=== PATIENT | male | born 1960 | race Caucasian/White ===

== ENCOUNTER 2016-12-16 12:17 | Emergency (ER) | payer OTHER, MEDICAID ==
[2016-12-16 14:06] LABS: % IMMATURE GRANULYOCYTES 0.5 % (0.0-1.1); ABSOLUTE IMMATURE GRANULOCYTES 0.04 10^3/uL (0.00-0.10); ADD DIFF? NO; ADD MORPH? NO; ADD SCAN? NO; ATYPICAL LYMPHOCYTE FLAG 20 (0-99); FRAGMENT RBC FLAG 0 (0-99); HEMATOCRIT 45.9 % (40.0-51.0); HEMOGLOBIN 15.3 g/dL (13.7-17.5); LEFT SHIFT FLG 0 (0-99); LIPEMIA HEMOLYSIS FLAG 80 (0-99); MEAN CELL HEMOGLOBIN 30.5 pg (27.9-34.1); MEAN CELL HEMOGLOBIN CONCENTR. 33.3 g/dL (32.4-36.7); MEAN CELL VOLUME 91.4 fL (81.5-99.8); MEAN PLATELET VOLUME 10.1 fL (8.7-11.7); PLATELET CLUMPS FLAG 0 (0-99); PLATELET COUNT 266 10^3/uL (150-400); RED BLOOD CELL COUNT 5.02 10^6/uL (4.40-6.38); RED CELL DISTRIBUTION WIDTH 13.6 % (11.5-15.2)
--- NOTE | 2016-12-16 14:08 | EDPHY ---
H & P Time Seen by Provider: 12/16/16 14:07 HPI/ROS: Chief complaint. Vomiting, diarrhea HPI. 56-year-old male vomiting and diarrhea which began today. No abdominal pain. Apparent recurrent vomiting and diarrhea this morning. No treatment so far. No abdominal pain or fever. He does have cough and tells me he is on his 3rd round of antibiotics for cough. No headache or chest discomfort or shortness of breath. Denies bad food, travel or known exposure to Infectious Disease. No blood in the diarrhea ROS Constitutional. no fever/chills, no weakness Eyes. no problems with vision ENT. no sore throat, no nasal drainage Cardiovascular. no chest pain Respiratory. no shortness of breath, no cough Abdominal. No abdominal pain but vomiting and diarrhea . no problems urinating MS. no calf pain/swelling, no neck/back pain, no joint pain Skin. no rash Lymph. no swollen glands Neuro. no headache, no dizziness, chronic difficulty walking; no problem with speech Past Medical/Surgical History: Past medical history dyslipidemia, constipation, muscle spasms, edema, hypertension, GERD Social History: Single, nonsmoker, no alcohol Smoking Status: Never smoked Physical Exam: General Appearance: Alert well-developed male mild distress. Eyes: Pupils equal and round no pallor or injection. ENT, Mouth: Mucous membranes are moist. Respiratory: There are no retractions, lungs are clear to auscultation. Cardiovascular: Regular rate and rhythm. Gastrointestinal: Abdomen is large and distended but nontender. No masses. Normal bowel sounds. Neurological: Awake and alert, sensory and motor exams grossly normal. Skin: Warm and dry, no rashes. Musculoskeletal: Neck is supple nontender. Extremities symmetrical, full range of motion. Psychiatric: Patient is oriented X 3, there is no agitation. Constitutional: Initial Vital Signs Temperature (C) 37.1 C 12/16/16 12:29 Heart Rate 88 12/16/16 12:29 Respiratory Rate 18 12/16/16 12:29 Blood Pressure 128/83 H 12/16/16 12:29 O2 Sat (%) 86 L 12/16/16 12:29 O2 Delivery Mode Nasal Cannula O2 (L/minute) 3 Allergies/Adverse Reactions: No Allergies [NKDA] Allergy (Verified 04/13/16 11:38) Home Medications: Medication Instructions Recorded Baclofen [Baclofen 20 mg (*)] 20 mg PO BID 11/16/12 Cholecalciferol Vit D3 [Vitamin D3 1,000 units PO HS 03/24/12 (*)] Gabapentin [Neurontin 300 MG (*)] 300 mg PO BID 03/24/12 Magnesium Hydroxide [Milk of 30 ml PO DAILY PRN 03/24/12 Magnesia (*)] Metoclopramide [Reglan 5 mg (*)] 5 mg PO TID 03/24/12 Oxybutynin Chloride Xl [Ditropan 5 mg PO DAILY06 03/24/12 Xl 5mg (*)] Polyethylene Glycol 3350 [Miralax 17 gm PO TID 03/24/12 17 gm (*)] Sennosides/Docusate Sodium [Senna 1 each PO BID 03/24/12 Plus Tablet] acetaZOLAMIDE [Diamox] 250 mg PO DAILY 03/24/12 guaiFENesin [Mucinex 600 MG (*)] 600 mg PO BID PRN 03/24/12 Hydrocodone/APAP 5/325 [[place] 1 - 2 tab PO Q4 PRN #90 tab 04/01/12 5/325 (*)] Atorvastatin Calcium 01/22/16 Diamox Sequel 500mg DAILY AT 6PM 01/22/16 [place] 3 1,000 mg Softgel 01/22/16 Ondansetron Odt [Zofran Odt] 4 mg PO Q4PRN PRN #4 tab 12/16/16 Medical Decision Making - Diagnostics Imaging Results: Imaging Impressions Abdomen X-Ray 12/16/16 14:18 Impression: Dilated gas-filled cecum. No small bowel obstruction. If there is concern for cecal volvulus, then consider CT of the abdomen and pelvis with IV contrast. Results discussed with Dr. Darwin Enciso at 15:36. Chest X-Ray 12/16/16 14:19 Impression: Nothing acute identified. Abdomen CT 12/16/16 15:46 Impression: 1. No evidence of cecal volvulus. Moderate air-filled distention of the sigmoid colon. 2. Small bilateral nonobstructing renal calculi. 3. Atelectasis within the lung bases bilaterally. 4. Mild diffuse fatty hepatic replacement. Results called to Dr. Darwin Enciso at 5:20 p.m. One-view chest x-ray interpreted by me is normal Abdominal x-ray concerning for cecal volvulus. Abdominal and pelvis CT shows no evidence of cecal volvulus. No acute findings Procedures: IV normal saline. Zofran for nausea ED Course/Re-evaluation: Re-evaluation 6:00 p.m.--patient is stable. No further nausea or vomiting. No diarrhea in the emergency department. Patient and I discussed imaging lab results. We discussed treatment plan including criteria for return importance of follow-up further evaluation. He expresses understanding and agreement. Differential Diagnosis: I considered Clostridium difficile however the patient has not been able to give us a stool sample. This could represent a vomiting diarrhea viral type illness. We were concerned for bowel obstruction and cecal volvulus however this appears to be not the case. I considered electrolyte abnormalities and dehydration as well - Data Points Laboratory Results: Laboratory Results 12/16/16 13:00 12/16/16 13:00 12/16/16 12/16/16 13:00 13:00 WBC 8.31 10^3/uL 10^3/uL (3.80-9.50) RBC 5.02 10^6/uL 10^6/uL (4.40-6.38) Hgb 15.3 g/dL g/dL (13.7-17.5) Hct 45.9 % % (40.0-51.0) MCV 91.4 fL fL (81.5-99.8) MCH 30.5 pg pg (27.9-34.1) MCHC 33.3 g/dL g/dL (32.4-36.7) RDW 13.6 % % (11.5-15.2) Plt Count 266 10^3/uL 10^3/uL (150-400) MPV 10.1 fL fL (8.7-11.7) Neut % (Auto) 67.6 % % (39.3-74.2) Lymph % (Auto) 18.4 % % (15.0-45.0) [place] % (Auto) 10.2 % % (4.5-13.0) Eos % (Auto) 2.6 % % (0.6-7.6) Baso % (Auto) 0.7 % % (0.3-1.7) Nucleat RBC Rel Count 0.0 % % (0.0-0.2) Absolute Neuts (auto) 5.61 10^3/uL 10^3/uL (1.70-6.50) Absolute Lymphs (auto) 1.53 10^3/uL 10^3/uL (1.00-3.00) Absolute Monos (auto) 0.85 10^3/uL H 10^3/uL (0.30-0.80) Absolute Eos (auto) 0.22 10^3/uL 10^3/uL (0.03-0.40) Absolute Basos (auto) 0.06 10^3/uL 10^3/uL (0.02-0.10) Absolute Nucleated RBC 0.00 10^3/uL 10^3/uL (0-0.01) Immature Gran % 0.5 % % (0.0-1.1) Immature Gran # 0.04 10^3/uL 10^3/uL (0.00-0.10) Sodium 141 mEq/L mEq/L (134-144) Potassium 3.9 mEq/L mEq/L (3.5-5.2) Chloride 100 mEq/L mEq/L (97-110) Carbon Dioxide 27 mEq/l mEq/l (22-31) Anion Gap 14 mEq/L mEq/L (8-16) BUN 14 mg/dL mg/dL (7-23) Creatinine 1.1 mg/dL mg/dL (0.7-1.3) Estimated GFR > 60 Glucose 101 mg/dL H mg/dL (70-100) Calcium 10.0 mg/dL mg/dL (8.5-10.4) Medications Given: Discontinued Medications Sodium Chloride (Ns) 1,000 mls @ 0 mls/hr IV EDNOW ONE; Wide Open PRN Reason: Protocol Stop: 12/16/16 14:19 Last Admin: 12/16/16 15:03 Dose: 1,000 mls Ondansetron HCl (Zofran) 4 mg IVP EDNOW ONE Stop: 12/16/16 14:19 Last Admin: 12/16/16 15:03 Dose: 4 mg Departure - Departure Disposition: Home, Routine, Self-Care Clinical Impression: Vomiting Qualifiers: Vomiting type: unspecified Vomiting Intractability: non-intractable Nausea presence: with nausea Qualified Code(s): R11.2 - Nausea with vomiting, unspecified Diarrhea Qualifiers: Diarrhea type: unspecified type Qualified Code(s): R19.7 - Diarrhea, unspecified Condition: Good Instructions: Acute Nausea and Vomiting (ED), Loperamide (By mouth) Additional Instructions: Frequent, small sips fluids well nauseated. Gradual diet advancement. Zofran if needed for nausea and vomiting. For diarrhea you may use Imodium (loperamide) which can by without prescription. Return for worsening symptoms. Recheck in 1-2 days for continuing symptoms Referrals: VÍCTOR,ALEA [Other] - 2-3 days, if not improved Prescriptions: Ondansetron Odt [Zofran Odt] 4 mg PO Q4PRN PRN #4 tab PRN Reason: Nausea/Vomiting, Use 1st
[2016-12-16] MEDS ORDERED: ONDANSETRON 4 MG/2 ML VIAL IVP ONE (14:18)
[2016-12-16] MEDS ORDERED: NS 1,000 ML IV ONE (14:18)
[2016-12-16 14:26] LABS: ANION GAP 14 mEq/L (8-16); CARBON DIOXIDE 27 mEq/l (22-31); CHLORIDE 100 mEq/L (97-110); CREATININE 1.1 mg/dL (0.7-1.3); GLOMERULAR FILTRATION RATE > 60; GLUCOSE 101 mg/dL (70-100); POTASSIUM 3.9 mEq/L (3.5-5.2); SODIUM 141 mEq/L (134-144)
[2016-12-16] MEDS ORDERED: IOPAMIDOL (ISOVUE-300) 100 ML BTL ONE (16:01)
[2016-12-16 17:03] VITALS: BP 111/67
[2016-12-16] MEDS ORDERED: ONDANSETRON 4MG PREPACK#2 BTL TAKEHOME ONE (18:05)
[2016-12-16 19:14] VITALS: PULSE 66; RESP 16; O2SAT 90
[2016-12-16 19:51] VITALS: TEMP 98.2
== END 2016-12-16 19:51 | disposition home or self-care (01) ==
LOC: EDUNIT#
DX: R19.7 Diarrhea, unspecified (principal); R11.2 Nausea with vomiting, unspecified; E86.9 Volume depletion, unspecified; I10 Essential (primary) hypertension
CPT/HCPCS: 71010; 74000; 74177; 96361; 96374; 99285; J2405; Q9967

== ENCOUNTER 2016-12-24 09:49 | Emergency (ER) | payer OTHER, MEDICAID ==
--- NOTE | 2016-12-24 09:54 | EDPHY ---
HPI/HX/ROS/PE/MDM - Data Points Imaging: Discussed imaging studies w/ clothes wringer Radiologist Narrative: CHIEF COMPLAINT: Abdominal pain HPI: This patient is a 56 year old male with history of hydrocephaly complaining of lower right quadrant abdominal pain onset this morning. Over the last three days , his home care staff have noted markedly increased abdominal distention, more than the patient's usual. He is currently being treated for pneumonia, and is on his third course of antibiotics. He is generally on 1L home oxygen at night, but EMS increased this to 3L due to low oxygen saturation. The patient remained around 87-90% O2 saturation. EMS was unable to establish an IV and gave oral Zofran. No other interventions prior to arrival. The patient's vitals were stable in transport. Today, he feels his abdomen is "rock hard" and has associated pain. He denies constipation, dysuria, fever, or other associated symptoms. The patient was seen in the ED approximately one week ago for similar complaints. REVIEW OF SYSTEMS: Aside from elements discussed in the HPI, a comprehensive 10-point review of systems was reviewed and is negative. PMH: hyperlipidemia, neuropathy, hydrocephaly. Takes Lasix. SOCIAL HISTORY: Lives in [place] with home care staff. PHYSICAL EXAM: General:Patient is alert, in no acute distress. ENT:Eyes are normal to inspection. ENT inspection normal. Neck: Normal inspection. Full range of motion. Respiratory: Left-sided rhonchi. Cardiovascular: Regular rate and rhythm. Strong peripheral pulses. Normal cap refill. Abdomen:The abdomen is nontender to palpation. There are no peritoneal signs. There are normal bowel sounds. Back: Normal to inspection. No tenderness to palpation. Skin: Normal color. No rash. Warm and dry. Extremities: 1+ pedal edema bilaterally, worse on left. Full range of motion. Neuro:No gross motor deficits. (Luke Montenegro) ED Course: 9:55 Met EMS at bedside. 56 year old male presents with abdominal distention and right lower quadrant abdominal pain. Plan for CBC, BMP, UA. Plan for abdominal CT. Labs unremarkable. 14:00 CT shows constipation and small bilateral renal stones, with no ureteral stone. No significant changes from December 16, 2016. Plan to discharge in good condition. He will follow up with primary care. Return precautions discussed. The patient is comfortable with this plan. ( Luke Montenegro) MDM: Asked by Dr. Montenegro to follow up on patient's urinalysis and discharge if negative for infection. UA reviewed and has red blood cells consistent with prior catheterization attempt , but without evidence of infection. (Kristian Mcintyre) This patient presents with report of abdominal pain and distension, but workup in the ED, including CTAP is negative. His non-tender on my exam. His symptoms may be secondary to constipation, but there are no signs of fecal impaction and this can be dealt with in his SAMEER. I see no signs of appendicitis , diverticulitis, bowel obstruction, bowel perforation or sepsis. (Luke Montenegro) - Data Points Imaging Results: Imaging Impressions Abdomen CT 12/24/16 09:55 Impression: 1. Constipation. 2. Obesity. 3. Small bilateral renal stones, with no ureteral stone. 4. Fatty infiltration of the liver. 5. No significant change from December 16, 2016. Laboratory Results: Laboratory Results 12/24/16 10:55 12/24/16 10:55 12/24/16 12/24/16 12/24/16 16:55 10:55 10:55 WBC 7.72 10^3/uL 10^3/uL (3.80-9.50) RBC 5.07 10^6/uL 10^6/uL (4.40-6.38) Hgb 15.4 g/dL g/dL (13.7-17.5) Hct 47.2 % % (40.0-51.0) MCV 93.1 fL fL (81.5-99.8) MCH 30.4 pg pg (27.9-34.1) MCHC 32.6 g/dL g/dL (32.4-36.7) RDW 13.9 % % (11.5-15.2) Plt Count 250 10^3/uL 10^3/uL (150-400) MPV 9.7 fL fL (8.7-11.7) Neut % (Auto) 63.7 % % (39.3-74.2) Lymph % (Auto) 22.5 % % (15.0-45.0) [place] % (Auto) 8.9 % % (4.5-13.0) Eos % (Auto) 3.4 % % (0.6-7.6) Baso % (Auto) 1.0 % % (0.3-1.7) Nucleat RBC Rel Count 0.0 % % (0.0-0.2) Absolute Neuts (auto) 4.91 10^3/uL 10^3/uL (1.70-6.50) Absolute Lymphs (auto) 1.74 10^3/uL 10^3/uL (1.00-3.00) Absolute Monos (auto) 0.69 10^3/uL 10^3/uL (0.30-0.80) Absolute Eos (auto) 0.26 10^3/uL 10^3/uL (0.03-0.40) Absolute Basos (auto) 0.08 10^3/uL 10^3/uL (0.02-0.10) Absolute Nucleated RBC 0.00 10^3/uL 10^3/uL (0-0.01) Immature Gran % 0.5 % % (0.0-1.1) Immature Gran # 0.04 10^3/uL 10^3/uL (0.00-0.10) Sodium 141 mEq/L mEq/L (134-144) Potassium 4.8 mEq/L mEq/L (3.5-5.2) Chloride 106 mEq/L mEq/L (97-110) Carbon Dioxide 21 mEq/l L mEq/l (22-31) Anion Gap 14 mEq/L mEq/L (8-16) BUN 11 mg/dL mg/dL (7-23) Creatinine 1.1 mg/dL mg/dL (0.7-1.3) Estimated GFR > 60 Glucose 102 mg/dL H mg/dL (70-100) Calcium 9.9 mg/dL mg/dL (8.5-10.4) Specimen Hemolysis 105 Urine Color YELLOW Urine Appearance CLEAR Urine pH 7.0 (5.0-7.5) Ur Specific [place] 1.025 (1.002-1.030) Urine Protein NEGATIVE (NEGATIVE) Urine Ketones NEGATIVE (NEGATIVE) Urine Blood 3+ H (NEGATIVE) Urine Nitrate NEGATIVE (NEGATIVE) Urine Bilirubin NEGATIVE (NEGATIVE) Urine Urobilinogen NEGATIVE EU EU (0.2-1.0) Ur Leukocyte Esterase NEGATIVE (NEGATIVE) Urine RBC 50-182 /hpf H /hpf (0-3) Urine WBC 3-5 /hpf H /hpf (0-3) Ur Epithelial Cells TRACE /lpf /lpf (NONE-1+) Urine Mucus TRACE /lpf /lpf (NONE-1+) Urine Glucose NEGATIVE (NEGATIVE) Medications Given: Discontinued Medications Sodium Chloride (Ns) 1,000 mls @ 0 mls/hr IV ONCE ONE PRN Reason: Wide Open Stop: 12/24/16 14:16 Last Admin: 12/24/16 14:39 Dose: 1,000 mls General Initial Vital Signs: Initial Vital Signs Temperature (C) 37.1 C 12/24/16 09:56 Heart Rate 88 12/24/16 09:56 Respiratory Rate 15 12/24/16 09:56 Blood Pressure 116/82 H 12/24/16 09:56 O2 Sat (%) 95 12/24/16 09:56 O2 Delivery Mode Room Air Allergies/Adverse Reactions: No Allergies [NKDA] Allergy (Verified 04/13/16 11:38) Home Medications: Medication Instructions Recorded Baclofen [Baclofen 20 mg (*)] 20 mg PO BID 03/24/12 Cholecalciferol Vit D3 [Vitamin D3 1,000 units PO HS 03/24/12 (*)] Gabapentin [Neurontin 300 MG (*)] 300 mg PO BID 03/24/12 Magnesium Hydroxide [Milk of 30 ml PO DAILY PRN 03/24/12 Magnesia (*)] Metoclopramide [Reglan 5 mg (*)] 5 mg PO TID 03/24/12 Oxybutynin Chloride Xl [Ditropan 5 mg PO DAILY06 03/24/12 Xl 5mg (*)] Polyethylene Glycol 3350 [Miralax 17 gm PO TID 03/24/12 17 gm (*)] Sennosides/Docusate Sodium [Senna 1 each PO BID 03/24/12 Plus Tablet] acetaZOLAMIDE [Diamox] 250 mg PO DAILY 03/24/12 guaiFENesin [Mucinex 600 MG (*)] 600 mg PO BID PRN 03/24/12 Hydrocodone/APAP 5/325 [[place] 1 - 2 tab PO Q4 PRN #90 tab 04/01/12 5/325 (*)] Atorvastatin Calcium 01/22/16 Diamox Sequel 500mg DAILY AT 6PM 01/22/16 [place] 3 1,000 mg Softgel 01/22/16 Ondansetron Odt [Zofran Odt] 4 mg PO Q4PRN PRN #4 tab 12/16/16 Departure - Departure Disposition: Home, Routine, Self-Care Clinical Impression: Abdominal pain Condition: Good Instructions: Acute Abdominal Pain (ED), Abdominal Pain (ED) Additional Instructions: 1. Follow up with your primary care provider in the next 72 hours for reevaluation. 2. Return to the emergency department for worsening pain, vomiting, diarrhea, fever, blood in your urine or stool, or other worsening of condition. Referrals: RENEE,UNKNOWN [Other] - As per Instructions Myranda Watson MD [Medical Doctor] - As per Instructions Report Scribed for: Luke Montenegro Report Scribed by: Belinda Alfred Date of Report: 12/24/16 Time of Report: 10:00 Physician Review and Approval Statement: Portions of this note were transcribed by an ED scribe. I personally performed the history, physical exam, and medical decision making; and confirm the accuracy of the information in the transcribed note.
[2016-12-24 11:06] LABS: % IMMATURE GRANULYOCYTES 0.5 % (0.0-1.1); ABSOLUTE IMMATURE GRANULOCYTES 0.04 10^3/uL (0.00-0.10); ADD DIFF? NO; ADD MORPH? NO; ADD SCAN? NO; ATYPICAL LYMPHOCYTE FLAG 0 (0-99); FRAGMENT RBC FLAG 0 (0-99); HEMATOCRIT 47.2 % (40.0-51.0); HEMOGLOBIN 15.4 g/dL (13.7-17.5); LEFT SHIFT FLG 0 (0-99); LIPEMIA HEMOLYSIS FLAG 80 (0-99); MEAN CELL HEMOGLOBIN 30.4 pg (27.9-34.1); MEAN CELL HEMOGLOBIN CONCENTR. 32.6 g/dL (32.4-36.7); MEAN CELL VOLUME 93.1 fL (81.5-99.8); MEAN PLATELET VOLUME 9.7 fL (8.7-11.7); PLATELET CLUMPS FLAG 0 (0-99); PLATELET COUNT 250 10^3/uL (150-400); RED BLOOD CELL COUNT 5.07 10^6/uL (4.40-6.38); RED CELL DISTRIBUTION WIDTH 13.9 % (11.5-15.2)
[2016-12-24 11:50] LABS: ANION GAP 14 mEq/L (8-16); CALCIUM 9.9 mg/dL (8.5-10.4); CARBON DIOXIDE 21 mEq/l (22-31); CHLORIDE 106 mEq/L (97-110); CREATININE 1.1 mg/dL (0.7-1.3); GLOMERULAR FILTRATION RATE > 60; GLUCOSE 102 mg/dL (70-100); POTASSIUM 4.8 mEq/L (3.5-5.2); SODIUM 141 mEq/L (134-144); SPECIMEN HEMOLYSIS 105
[2016-12-24] MEDS ORDERED: IOPAMIDOL (ISOVUE-300) 100 ML BTL ONE (12:05)
[2016-12-24] MEDS ORDERED: NS 1,000 ML IV ONE (14:15)
[2016-12-24] MEDS ORDERED: LIDOCAINE 2% JELLY 20 ML (UROJECT) ONE ×2 (16:30→16:32)
[2016-12-24 17:03] LABS: COLOR YELLOW; LEUKOCYTE ESTERASE,URINE NEGATIVE (NEGATIVE); NITRITE,URINE NEGATIVE (NEGATIVE)
[2016-12-24 17:05] LABS: MUCUS TRACE /lpf (NONE-1+); RBC,URINE 50-182 /hpf (0-3)
[2016-12-24 20:03] VITALS: BP 113/44; PULSE 66; RESP 16; TEMP 98.1; O2SAT 96
== END 2016-12-24 20:08 | disposition home or self-care (01) ==
LOC: EDUNIT#
DX: R10.9 Unspecified abdominal pain (principal)
CPT/HCPCS: 74177; 96360; 99285; Q9967

== ENCOUNTER 2017-03-19 13:11 | Inpatient (IN) | payer OTHER, MEDICAID ==
--- NOTE | 2017-03-19 13:23 | EDPHY ---
H & P Time Seen by Provider: 03/19/17 13:23 HPI/ROS: CHIEF COMPLAINT: Cough and fever HISTORY OF PRESENT ILLNESS: Patient was treated with oral antibiotics for pneumonia in December. 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 No inpatient hospitalizations in the last 90 days. Over the last 48 hours he has had increasingly productive cough and shortness of breath and was sent in by EMS when his caregiver came to the house and noticed he was coughing and short of breath and hypoxic. Symptoms moderate to severe in nature. Not better worse with position. Worse shortness of breath with coughing. REVIEW OF SYSTEMS: Eye: no change in vision ENT: no sore throat Cardiac: no chest pain or syncope Pulmonary: HPI Abdomen: no vomiting, diarrhea, abdominal pain Musculoskeletal: no back pain Skin: no rash Neuro: no headache Constitutional: Fever and chills : Indwelling catheter A comprehensive 10 point review of systems is otherwise negative aside from elements mentioned in the history of present illness. PAST MEDICAL HISTORY: Hydrocephalus with [employer] ASSIST[employer] shunt and quadriplegia, pneumonia in December, spinal fusion. Social history: Lives independently with home health care General Appearance: Alert and conversant, cooperative. Eyes: No scleral icterus. ENT, Mouth: Slightly dry mucous membranes Respiratory: Rhonchi both sides but speaks in full sentences, 85% saturation on room air. Cardiovascular: Regular rate and rhythm. Tachycardic. Gastrointestinal: Abdomen is soft and non tender. Neurological: Alert and oriented x3. Normally conversant. Patient has decreased strength in all 4 extremities which is baseline for him. Skin: Warm and dry, no rashes. Musculoskeletal: No peripheral edema and no joint swelling. Psychiatric: Not agitated. Emergency Department course/MDM: Chest x-ray and urinalysis, lactate screening for sepsis. Likely pneumonia with fever cough and hypoxemia. 1421: Chest x-ray reviewed with radiologist Sriram, do not see definite infiltrate. At this point with for current cough and is shortness of breath suspicion at least intermediate to high likelihood for pulmonary embolism with severe hypoxemia and no definite large infiltrate on chest x-ray, CT angiography ordered. 1538: CTA shows no pulmonary embolism, no definite pneumonia. Sriram. 1541: Discussed with Eliezer; will treated initially with initial IV antibiotics for possible pulmonary infection given entirety of clinical picture. Smoking Status: Never smoked Constitutional: Initial Vital Signs Temperature (C) 39.4 C H 03/19/17 13:25 Heart Rate 126 H 03/19/17 13:25 Respiratory Rate 26 H 03/19/17 13:25 Blood Pressure 138/88 H 03/19/17 13:25 O2 Sat (%) 92 03/19/17 13:25 O2 Delivery Mode Nasal Cannula O2 (L/minute) 4 Allergies/Adverse Reactions: No Allergies [NKDA] Allergy (Verified 04/13/16 11:38) Home Medications: Medication Instructions Recorded Baclofen [Baclofen 20 mg (*)] 20 mg PO BID 03/24/12 Cholecalciferol Vit D3 [Vitamin D3 1,000 units PO HS 03/24/12 (*)] Gabapentin [Neurontin 300 MG (*)] 300 mg PO BID 03/24/12 Metoclopramide [Reglan 5 mg (*)] 5 mg PO QID 03/24/12 Oxybutynin Chloride Xl [Ditropan 5 mg PO DAILY06 03/24/12 Xl 5mg (*)] Polyethylene Glycol 3350 [Miralax 17 gm PO BID 03/24/12 17 gm (*)] Sennosides/Docusate Sodium [Senna 1 each PO BID 03/24/12 Plus Tablet] Atorvastatin Calcium [Lipitor 20 20 mg PO DAILY 03/19/17 mg (*)] Bisacodyl [Dulcolax] 10 mg RC DAILY 03/19/17 Furosemide [Lasix 80 MG (*)] 80 mg PO DAILY 03/19/17 Hydrocodone/Acetaminophen [[place] 1 - 2 tab PO Q4H PRN 03/19/17 5/325 (*)] Magnesium Hydroxide [Milk of 400 mg PO DAILY 03/19/17 Magnesia] Metoprolol Succinate Xr [Toprol Xl 25 mg PO DAILY 03/19/17 25 mg (*)] Nystatin Powder [Mycostatin Powder 1 raimundo TP DAILY PRN 03/19/17 (RX)] [place]-3 Fatty Acids [Fish Oil 1000 1,000 mg PO DAILY 03/19/17 mg (*)] Potassium Cl [Klor-Con 20 meq (*)] 40 meq PO BID 03/19/17 Sodium Fluoride [Prevident 5000] 100 ml DT BID 03/19/17 guaiFENesin [Mucinex 600 MG (*)] 600 mg PO BID PRN 03/19/17 Medical Decision Making - Diagnostics Imaging Results: Imaging Impressions Chest X-Ray 03/19/17 13:23 Impression: Mild hypoventilatory features. Findings were discussed with AUSTIN MTZ MD at 14:23, on 03/19/2017. Chest/Thorax CTA 03/19/17 14:21 Impression: 1. There is no CT evidence for central or first-order pulmonary artery thromboemboli. There is some limitation in assessment of the more peripheral branches because of breathing artifact and bolus timing. 2. Mild perihilar bronchitis with some dependent subsegmental atelectasis, but no new significant infiltrate or pleural effusion, compared to 12/24/2016. 3. Mediastinal lipomatosis, hepatic steatosis, and moderate centripetal obesity. Findings were discussed with AUSTIN MTZ MD at 15:29, on 03/19/2017. Differential Diagnosis: Differential for fever considered including but not limited to meningitis, sepsis, pneumonia, urinary tract infection. - Data Points Laboratory Results: Laboratory Results 03/19/17 13:45 03/19/17 13:45 03/19/17 03/19/17 03/19/17 14:00 14:00 13:45 WBC RBC Hgb Hct MCV MCH MCHC RDW Plt Count MPV Neut % (Auto) Lymph % (Auto) [place] % (Auto) Eos % (Auto) Baso % (Auto) Nucleat RBC Rel Count Absolute Neuts (auto) Absolute Lymphs (auto) Absolute Monos (auto) Absolute Eos (auto) Absolute Basos (auto) Absolute Nucleated RBC Immature Gran % Immature Gran # PT INR APTT VBG Lactic Acid Sodium 145 mEq/L H mEq/L (134-144) Potassium 4.0 mEq/L mEq/L (3.5-5.2) Chloride 99 mEq/L mEq/L (97-110) Carbon Dioxide 31 mEq/l mEq/l (22-31) Anion Gap 15 mEq/L mEq/L (8-16) BUN 17 mg/dL mg/dL (7-23) Creatinine 1.2 mg/dL mg/dL (0.7-1.3) Estimated GFR > 60 Glucose 115 mg/dL H mg/dL (70-100) Calcium 10.1 mg/dL mg/dL (8.5-10.4) Total Bilirubin 0.8 mg/dL mg/dL (0.1-1.4) Urine Color PALE YELLOW Urine Appearance CLEAR Urine pH 6.0 (5.0-7.5) Ur Specific [place] 1.005 (1.002-1.030) Urine Protein NEGATIVE (NEGATIVE) Urine Ketones NEGATIVE (NEGATIVE) Urine Blood 1+ H (NEGATIVE) Urine Nitrate NEGATIVE (NEGATIVE) Urine Bilirubin NEGATIVE (NEGATIVE) Urine Urobilinogen NEGATIVE EU EU (0.2-1.0) Ur Leukocyte Esterase 2+ H (NEGATIVE) Urine RBC 3-5 /hpf H /hpf (0-3) Urine WBC 3-5 /hpf H /hpf (0-3) Ur Epithelial Cells NONE SEEN /lpf /lpf (NONE-1+) Urine Bacteria TRACE /hpf H /hpf (NONE SEEN) Urine Mucus TRACE /lpf /lpf (NONE-1+) Urine Glucose NEGATIVE (NEGATIVE) Nasal Influenza A PCR NEGATIVE FOR FLU A (NEGATIVE) Nasal Influenza B PCR NEGATIVE FOR FLU B (NEGATIVE) 03/19/17 03/19/17 03/19/17 13:45 13:45 13:45 WBC 16.96 10^3/uL H 10^3/uL (3.80-9.50) RBC 5.56 10^6/uL 10^6/uL (4.40-6.38) Hgb 16.4 g/dL g/dL (13.7-17.5) Hct 49.4 % % (40.0-51.0) MCV 88.8 fL fL (81.5-99.8) MCH 29.5 pg pg (27.9-34.1) MCHC 33.2 g/dL g/dL (32.4-36.7) RDW 13.9 % % (11.5-15.2) Plt Count 320 10^3/uL 10^3/uL (150-400) MPV 9.4 fL fL (8.7-11.7) Neut % (Auto) 89.2 % H % (39.3-74.2) Lymph % (Auto) 4.2 % L % (15.0-45.0) [place] % (Auto) 5.7 % % (4.5-13.0) Eos % (Auto) 0.1 % L % (0.6-7.6) Baso % (Auto) 0.4 % % (0.3-1.7) Nucleat RBC Rel Count 0.0 % % (0.0-0.2) Absolute Neuts (auto) 15.14 10^3/uL H 10^3/uL (1.70-6.50) Absolute Lymphs (auto) 0.71 10^3/uL L 10^3/uL (1.00-3.00) Absolute Monos (auto) 0.96 10^3/uL H 10^3/uL (0.30-0.80) Absolute Eos (auto) 0.01 10^3/uL L 10^3/uL (0.03-0.40) Absolute Basos (auto) 0.07 10^3/uL 10^3/uL (0.02-0.10) Absolute Nucleated RBC 0.00 10^3/uL 10^3/uL (0-0.01) Immature Gran % 0.4 % % (0.0-1.1) Immature Gran # 0.07 10^3/uL 10^3/uL (0.00-0.10) PT 12.9 SEC SEC (12.0-15.0) INR 0.98 (0.83-1.16) APTT 26.3 SEC SEC (23.0-38.0) VBG Lactic Acid 2.2 mmol/L H mmol/L (0.7-2.1) Sodium Potassium Chloride Carbon Dioxide Anion Gap BUN Creatinine Estimated GFR Glucose Calcium Total Bilirubin Urine Color Urine Appearance Urine pH Ur Specific [place] Urine Protein Urine Ketones Urine Blood Urine Nitrate Urine Bilirubin Urine Urobilinogen Ur Leukocyte Esterase Urine RBC Urine WBC Ur Epithelial Cells Urine Bacteria Urine Mucus Urine Glucose Nasal Influenza A PCR Nasal Influenza B PCR Microbiology Results: MICROBIOLOGY 03/19/17 14:05 Nasal, Sinus - Swab Respiratory Panel (PCR) - Final No Organism Detected Medications Given: Discontinued Medications Azithromycin 500 mg/ Dextrose 255 mls @ 255 mls/hr IV EDNOW ONE PRN Reason: Protocol Stop: 03/19/17 16:40 Last Admin: 03/19/17 16:26 Dose: 255 mls Ceftriaxone Sodium/Dextrose (Rocephin 1 Gm (Premix)) 50 mls @ 100 mls/hr IV EDNOW ONE PRN Reason: Protocol Stop: 03/19/17 16:10 Last Admin: 03/19/17 16:05 Dose: 50 mls Sodium Chloride (Ns) 3,300 mls @ 6,600 mls/hr 30 ml/kg infuse over 30 min ( 3300 ml) IV EDNOW ONE PRN Reason: Protocol Stop: 03/19/17 16:26 Last Admin: 03/19/17 16:26 Dose: 3,300 mls Departure - Departure Disposition: [facility] Acute Clinical Impression: Hypoxia, Sepsis Condition: Fair
[2017-03-19 14:00] LABS: % IMMATURE GRANULYOCYTES 0.4 % (0.0-1.1); ABSOLUTE IMMATURE GRANULOCYTES 0.07 10^3/uL (0.00-0.10); ADD DIFF? NO; ADD MORPH? NO; ADD SCAN? NO; ATYPICAL LYMPHOCYTE FLAG 0 (0-99); FRAGMENT RBC FLAG 0 (0-99); HEMATOCRIT 49.4 % (40.0-51.0); HEMOGLOBIN 16.4 g/dL (13.7-17.5); LEFT SHIFT FLG 10 (0-99); LIPEMIA HEMOLYSIS FLAG 80 (0-99); MEAN CELL HEMOGLOBIN 29.5 pg (27.9-34.1); MEAN CELL HEMOGLOBIN CONCENTR. 33.2 g/dL (32.4-36.7); MEAN CELL VOLUME 88.8 fL (81.5-99.8); MEAN PLATELET VOLUME 9.4 fL (8.7-11.7); PLATELET CLUMPS FLAG 0 (0-99); PLATELET COUNT 320 10^3/uL (150-400); RED BLOOD CELL COUNT 5.56 10^6/uL (4.40-6.38); RED CELL DISTRIBUTION WIDTH 13.9 % (11.5-15.2)
[2017-03-19 14:09] LABS: INR 0.98 (0.83-1.16); PROTIME(PATIENT) 12.9 SEC (12.0-15.0)
[2017-03-19 14:10] LABS: APTT 26.3 SEC (23.0-38.0)
[2017-03-19 14:15] LABS: ANION GAP 15 mEq/L (8-16); BILIRUBIN,TOTAL 0.8 mg/dL (0.1-1.4); CALCIUM 10.1 mg/dL (8.5-10.4); CARBON DIOXIDE 31 mEq/l (22-31); CHLORIDE 99 mEq/L (97-110); CREATININE 1.2 mg/dL (0.7-1.3); GLOMERULAR FILTRATION RATE > 60; GLUCOSE 115 mg/dL (70-100); SODIUM 145 mEq/L (134-144)
[2017-03-19 14:22] LABS: COLOR PALE YELLOW; LEUKOCYTE ESTERASE,URINE 2+ (NEGATIVE); NITRITE,URINE NEGATIVE (NEGATIVE)
[2017-03-19 14:24] LABS: BACTERIA TRACE /hpf (NONE SEEN); MUCUS TRACE /lpf (NONE-1+)
[2017-03-19] MEDS ORDERED: IOPAMIDOL (ISOVUE 370) 100 ML BTL IV ONE (14:29)
[2017-03-19 14:50] LABS: LACGHOST ORDER
[2017-03-19] MEDS ORDERED: AZITHROMYCIN IV 500 MG in D5W 250 ML IV ONE (15:41)
[2017-03-19] MEDS ORDERED: ONDANSETRON 4 MG/2 ML VIAL IVP PRN (15:43)
[2017-03-19] MEDS ORDERED: ACETAMINOPHEN 325 MG TAB PO PRN (15:43)
[2017-03-19] MEDS ORDERED: ONDANSETRON DISINTEGRATING 4 MG TAB PO PRN (15:43)
[2017-03-19] MEDS ORDERED: NS 3,300 ML IV ONE (15:57)
--- NOTE | 2017-03-19 16:13 | ASMTCMCOM ---
CM Note CM Note Notes: Please see ER report and history for detailed patient information. Patient is a very pleasant man admitted through the ER today to room 347. He is current with [facility] and receives home visits daily from a AUTO CLAIM REPRESENTATIVE named "Matthew". I have LM with [facility] to inform of patient's admission and CM to follow with D/C planning prn Date Signed: 03/19/2017 04:12 PM Electronically Signed By:Christina Daugherty RN
[2017-03-19] MEDS ORDERED: NYSTATIN POWDER 15 GM BTL TP PRN (16:29)
[2017-03-19] MEDS ORDERED: guaiFENesin 600 MG TAB.ER PO PRN ×2 (16:29→17:07)
[2017-03-19] MEDS ORDERED: HYDROCODONE/APAP 5/325 TAB PO PRN (16:29)
[2017-03-19] MEDS ORDERED: POLYETHYLENE GLYCOL 3350 17 GM PKT PO PRN (16:39)
[2017-03-19] MEDS ORDERED: MAGNESIUM HYDROXIDE 30 ML UDCUP PO PRN (16:39)
[2017-03-19] MEDS ORDERED: BISACODYL 10 MG SUPP PR PRN (16:39)
[2017-03-19] MEDS ORDERED: LACTULOSE 20 GM/30 ML UDCUP PO PRN (16:39)
--- NOTE | 2017-03-19 16:48 | ASMTCMCOM ---
CM Note CM Note Notes: Patient's mother Bev contacted and informed of patient's admission per patient request Date Signed: 03/19/2017 04:47 PM Electronically Signed By:Christina Daugherty RN
[2017-03-19] MEDS ORDERED: IBUPROFEN 200 MG TAB PO PRN (17:09)
--- NOTE | 2017-03-19 17:19 | GHP ---
[f rep st] HISTORY AND PHYSICAL DATE OF ADMISSION: 03/19/2017 CHIEF COMPLAINT: Fever. HISTORY OF PRESENT ILLNESS: A 56-year-old male with history of a hydrocephalus with RESEARCH ENGINEER MARINE EQUIPMENT shunts, diastolic heart failure, and hydrocephaly, presenting with fevers. Stated he was feeling well until this morning and then he had an episode of nonbloody emesis. Then developed fever and sweats. No diarrhea. No headache or neck stiffness. Has a chronic Garibay and denies bladder spasms. No myalgias. Has been eating and drinking okay. No ill contacts. He complained of a cough chronically for the past year, but his career technical counselor said has had increased cough, shortness of breath and sputum production today. REVIEW OF SYSTEMS: I completed a 10-point review of system. 1. Hydrocephaly with RESEARCH ENGINEER MARINE EQUIPMENT shunt, status post 2 revisions. Infected in 1999. 2. Hyperlipidemia. 3. Neuropathy. 4. Diastolic heart failure, followed by Dr. Barrera. 5. Edema. 6. Hyperlipidemia. 7. GERD. 8. Depression. 9. Urinary retention. 10. Chronic Garibay. 11. Chronic hypoxemic respiratory failure; 1 L at night. 12. Nonobstructive CAD: Lexiscan with small anterior ischemia. No cath planned unless anginal symptoms SOCIAL HISTORY: Lives in [place]. 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 Uses a powered wheelchair. No alcohol, tobacco, or illicit's. PAST SURGICAL HISTORY: 1. Neck surgery. 2. Spinal surgery. FAMILY HISTORY: No MO or CVA. ALLERGIES: None. HOME MEDICATIONS: 1. Milk of magnesia p.r.n. 2. PreviDent 100 mL b.i.d. 3. Senna. 4. Potassium. 5. Toprol 25 mg daily. 6. Reglan 5 mg 4 times a day. 7. [place]-3. 8. Nystatin powder. 9. [place] 1-2 tabs p.r.n. 10. MiraLAX as needed. 11. Gabapentin 300 mg b.i.d. 12. Lasix 80 mg daily. 13. Dulcolax daily. 14. Oxybutynin 5 mg daily. 15. Vitamin D3. 16. Baclofen. 17. Atorvastatin. 18. Guaifenesin. 19. Diamox. 20. Zofran. PHYSICAL EXAMINATION: VITAL SIGNS: Temperature 39.4, blood pressure 109/83, heart rate 115, respirations 23, 91% on room air. GENERAL: Lying in bed in no acute distress, diaphoretic. HEENT: PERRLA. Mildly dry mucous membranes. Oropharynx clear; no ulceration, exudate, or erythema. CV: Tachy but regular. No murmurs, gallops, or rubs. LUNGS: Clear to auscultation anteriorly. ABDOMEN: Firm, but soft. No tenderness to palpation. : Chronic Garibay in place with clear yellow urine. No suprapubic tenderness. SKIN: Warm, dry. No ulceration or rash. Will need to examine back side when upstairs. MUSCULOSKELETAL: Unable to move neck forward due to prior surgeries. NEURO: 2 through 12 intact. PSYCH: Alert and oriented x3. LABORATORY DATA: WBC is 16, hemoglobin 16, hematocrit 49, platelets 322. Coags within normal. Lactate 2.2, repeat 1.1. Sodium 145, potassium 4, chloride 99, BUN 17, creatinine 1.2 (baseline 1.1), glucose 115, total bilirubin 0.8. Procalcitonin is pending. UA: 3-5 whites, trace bacteria, +1 blood. Negative flu. Chest x-ray personally reviewed by me: No overt opacity. CTA: No PE. Bronchitis and atelectasis. ASSESSMENT AND PLAN: 1. Sepsis: Fever, tachycardia, and leukocytosis. Differential includes viral upper respiratory infection atypical PNA. Flu negative, but will check full resp PCR. Mildly positive UA, add urine culture. Blood cultures pending. No neck stiffness or headache. If continues febrile, may need to do LP with a RESEARCH ENGINEER MARINE EQUIPMENT shunt. Will cover for CAP with CTX/Azithro since procalcitonin positive. 2. Leukocytosis: Again, differential is broad at this point. CTX/Azithro with reported cough from career technical counselor and elevated procalcitonin is pending. Cultures pending. 3. Hydrocephalus: Ventriculoperitoneal shunt. 4. Hyperlipidemia: Statin. 5. Compensated diastolic heart failure: Continue beta davian. Hold Lasix with mild ISABEL. 6. Chronic pain: Continue home medications. 7. Mild acute kidney injury; creatinine is 1.2 and baseline is 1.1. Will give IV fluids. 8. Acute on chronic hypoxemic resp failure: normally 1L at night, now on 4. Cont abx as above 9. Lactic acidosis: Secondary to fever. Resolved with IV fluids. 10. Nonobstructive CAD: medical management per Dr. Barrera' clinic notes. Cont BB , statin. 10. Deep vein thrombosis prophylaxis: Lovenox. 11. Diet: Regular. DISPOSITION: Patient warrants observation admission given acute fever and sepsis, warranting IV fluid resuscitation and antibiotics. /[id number]/MODL MTDD
[2017-03-19 18:41] LABS: ALBUMIN 3.4 g/dL (3.5-5.0); BILIRUBIN,TOTAL 0.6 mg/dL (0.1-1.4); BILIRUBIN-CONJUGATED 0.2 mg/dL (0.0-0.5); BILIRUBIN-UNCONJUGATED 0.4 mg/dL (0.0-1.1); TOTAL PROTEIN 6.8 g/dL (6.3-8.2)
[2017-03-19] MEDS: BACLOFEN 20 MG TAB PO SCH (20:39)
[2017-03-19] MEDS: SENNOSIDES/DOCUSATE SODIUM TAB PO SCH (20:39)
[2017-03-19] MEDS: CHOLECALCIFEROL VIT D3 1,000 UNITS TAB PO SCH (20:39)
[2017-03-19] MEDS: GABAPENTIN 300 MG CAP PO SCH (20:40)
[2017-03-19] MEDS: METOCLOPRAMIDE 10 MG TAB PO SCH (20:40)
[2017-03-19] MEDS ORDERED: METOCLOPRAMIDE 5 MG TAB PO SCH ×2 (21:00)
[2017-03-19] MEDS ORDERED: HYDROCODONE/APAP 5/325 TAB PO SCH ×2 (21:00)
[2017-03-19] MEDS ORDERED: SENNOSIDES/DOCUSATE SODIUM TAB PO SCH (21:00)
[2017-03-19] MEDS ORDERED: NS 1,000 ML IV SCH (22:00)
[2017-03-19] MEDS: SODIUM FLUORIDE DT SCH (22:40)
[2017-03-20 05:01] LABS: HEMATOCRIT 40.3 % (40.0-51.0); HEMOGLOBIN 13.4 g/dL (13.7-17.5); MEAN CELL HEMOGLOBIN 29.8 pg (27.9-34.1); MEAN CELL HEMOGLOBIN CONCENTR. 33.3 g/dL (32.4-36.7); MEAN CELL VOLUME 89.8 fL (81.5-99.8); RED BLOOD CELL COUNT 4.49 10^6/uL (4.40-6.38); RED CELL DISTRIBUTION WIDTH 14.2 % (11.5-15.2)
[2017-03-20 05:29] LABS: ANION GAP 10 mEq/L (8-16); CALCIUM 8.6 mg/dL (8.5-10.4); CARBON DIOXIDE 27 mEq/l (22-31); CHLORIDE 104 mEq/L (97-110); CREATININE 1.1 mg/dL (0.7-1.3); GLOMERULAR FILTRATION RATE > 60; GLUCOSE 122 mg/dL (70-100); POTASSIUM 3.5 mEq/L (3.5-5.2); SODIUM 141 mEq/L (134-144)
[2017-03-20] MEDS: METOCLOPRAMIDE 10 MG TAB PO SCH ×4 (05:36→20:13)
[2017-03-20] MEDS: OXYBUTYNIN 5 MG EXT REL TAB PO SCH (05:36)
[2017-03-20] MEDS: SODIUM FLUORIDE DT SCH ×2 (08:40→22:51)
[2017-03-20] MEDS ORDERED: AZITHROMYCIN 250 MG TAB PO SCH (09:00)
[2017-03-20] MEDS: OMEGA-3 FATTY ACIDS 1,000 MG CAP PO SCH (10:03)
[2017-03-20] MEDS: MAGNESIUM HYDROXIDE 30 ML UDCUP PO SCH (10:04)
[2017-03-20] MEDS: GABAPENTIN 300 MG CAP PO SCH ×2 (10:04→20:10)
[2017-03-20] MEDS: ENOXAPARIN 40 MG/0.4 ML SYR SC SCH (10:04)
[2017-03-20] MEDS: ATORVASTATIN CALCIUM 20 MG TAB PO SCH (10:04)
[2017-03-20] MEDS: SENNOSIDES/DOCUSATE SODIUM TAB PO SCH ×2 (10:04→20:14)
[2017-03-20] MEDS: BACLOFEN 20 MG TAB PO SCH ×2 (10:04→20:13)
[2017-03-20] MEDS: METOPROLOL SUCCINATE XR 25 MG TAB PO SCH (10:06)
--- NOTE | 2017-03-20 13:27 | GCON ---
[f rep st] CONSULTATION INFECTIOUS DISEASE CONSULTATION. DATE OF CONSULTATION: 03/20/2017 REFERRING PHYSICIAN: Jania Stuart MD REASON FOR CONSULTATION: Klebsiella bacteremia. HISTORY OF PRESENT ILLNESS: A 56-year-old male with a history of hydrocephalus and MANAGER COMMERCIAL shunts, who is chronically wheelchair bound, who presents to the emergency room for progressive coughing and fever, 03/19/2017. The patient reports that his coughing has been longstanding, but subsequently on the day of admission had an episode of nonbloody emesis. He denies dysphagia and he also denies subjective fever and chills, although in the ER report, caregiver documented fever. The patient has a chronic condom catheter that is changed multiple times daily. He denies any urinary issues, abdominal pain, headache, shortness of breath. He does note about 3 rounds of antibiotics since mid October. The patient was admitted to the hospital 03/19/2017, and was found to have a fever of 39.4, a mild leukocytosis of 16.9, an elevated procalcitonin, and was started on empiric antibiotics including ceftriaxone and azithromycin for possible community-acquired pneumonia. In addition, patient was found to be more hypoxic than at baseline. Imaging was performed including a chest x-ray which showed a poor inspiratory effort without focal infiltrates, and a right IJ in place and past neck surgery. A followup CT scan was performed and personally reviewed by me which again showed no focal infiltrate except for some bilateral atelectasis and possible evidence of bronchial wall thickening consistent with bronchitis. Overnight patient had 1 of 2 positive blood cultures positive for Klebsiella pneumoniae. Today patient reports improvement in his cough after antibiotics received overnight. PAST MEDICAL HISTORY: 1. Hydrocephalus with MANAGER COMMERCIAL shunt, status post multiple revisions. Last operation was in 1999. 2. Hyperlipidemia. 3. Neuropathy. 4. Diastolic heart failure and chronic lower extremity edema. 5. Hyperlipidemia. 6. Gastroesophageal reflux disease. 7. Depression. 8. Chronic condom catheter. 9. Chronic hypoxic respiratory failure/COPD, on 1 L of oxygen at night. 10. Nonobstructive coronary artery disease. SOCIAL HISTORY: He lives in [place]. He was previously in a [facility] following neck surgery until mid October when he returned home. 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 He has a powered wheelchair. No alcohol, tobacco, or illicits. FAMILY HISTORY: Negative for coronary artery disease. ALLERGIES: NKDA. MEDICATIONS: Ceftriaxone 1 g IV daily started 03/19/2017 and azithromycin 500 mg IV daily started 03/19. He is on p.r.n. Tylenol, [place] 5/325, guaifenesin 600 twice daily, Motrin, lactulose, milk of magnesia. Scheduled medicines include Lipitor 20 mg daily, baclofen 20 mg twice daily, , vitamin D 1000 units daily, Lovenox 40 mg subcu daily, gabapentin 300 mg twice daily, milk of magnesia 30 mg daily, Reglan 5 mg p.o. q.i.d., fish oil 1000 mg daily did, Ditropan 5 mg daily,Senokot 1 tablet twice daily. REVIEW OF SYSTEMS: A complete 10-point review of systems was performed and is negative except as mentioned in the HPI. PHYSICAL EXAMINATION: VITAL SIGNS: T-max 39.4, T current 36.9, BP 107/65, heart rate 87, saturation 92% on room air. GENERAL: This is a chronic ill appearing male sitting up in bed in no acute distress. HEENT: Fair dentition, moist mucous membranes. No conjunctival hemorrhages. NECK: Limited range of motion due to past surgeries. 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 LUNGS: Limited due to shallow inspiration. No crackles were appreciated. CARDIOVASCULAR: Regular rate. No murmurs. ABDOMEN: Mildly obese, soft, nontender. Bowel sounds present. : Condom cath was present without scrotal swelling. EXTREMITIES: Patient had 2+ pitting edema in all 4 extremities. Least edema was present in the right upper extremity. NEUROLOGICAL: The patient was limited at baseline. A full exam was not performed. The patient was conversational and alert and oriented x4. LABORATORY/IMAGING DATA: White count 16.9, today 10.6, hematocrit 49-40, platelets of 363. Creatinine 1.2 on admission, 1.1 today. AST 18, ALT 37, alkaline phosphatase 96, procalcitonin 1.1. CT chest and chest x-ray as per HPI. Blood culture 1 of 2, Klebsiella pneumoniae, susceptibilities pending. Urinalysis showed 2+ leukocyte esterase, 3-5 RBCs, 3-5 WBCs. Urine culture is no growth to date. ASSESSMENT AND PLAN: This is a 56-year-old male with multiple physical limitations and a chronic condom catheter, who presents with respiratory symptoms and mild hypoxia, although corresponding imaging is somewhat unimpressive for pneumonia. Subsequently, patient was found to have Klebsiella pneumoniae bacteremia. Certainly most likely source seems to be respiratory as no other symptoms from any other source are noted and current data is less suggestive for urinary source, although cannot be completely excluded until culture is final. Certainly multiple rounds of antibiotics could of put patient at risk for less typical respiratory pathogen. Agree with continuation of ceftriaxone and discontinuation of azithromycin. Repeat blood cultures are not necessary with gram-negative ministerio bacteremia at this point. Will wait for susceptibilities and assess if the patient could be transitioned to levofloxacin to complete his antibiotic course. Thank you for this consultation. Will continue to follow on a daily basis. /[id number]/MODL MTDD
--- NOTE | 2017-03-20 14:26 | ASMTCMCOM ---
CM Note CM Note Notes: Chart reviewed. Per PT patient is at his baseline. He uses powered wheelchair and has caregiver 12 hours daily at home. He is dependent for all ALDs except feeding self. No current needs identified but CM available if needs arise. Date Signed: 03/20/2017 02:25 PM Electronically Signed By:Laura Palmer RN
--- NOTE | 2017-03-20 19:06 | HOSPPROG ---
Hospitalist Progress Note Assessment/Plan: * Klebsiella severe sepsis - suspect pulmonary source -IV ceftriaxone -d/w Dr. Esparza - ID to consult * Pneumonia * Acute respiratory failure - improved * Chronic condom catheter * Hydrocephalus s/p CHLORINE CELLS OPERATOR shunt * CAD with + stress test -medical management unless develops symptoms Subjective: no complaints, feels better Objective: Vital Signs Temp Pulse Resp BP Pulse Ox 36.9 C 79 16 115/71 90 L 03/20/17 15:29 03/20/17 15:29 03/20/17 15:29 03/20/17 15:29 03/20/17 15:29 Laboratory Results 03/20/17 04:39 03/20/17 04:39 03/19/17 03/20/17 03/21/17 05:59 05:59 05:59 Intake Total 2547 350 Output Total 550 200 Balance 1996 150 PT 12.9 SEC (12.0-15.0) 03/19/17 13:45 INR 0.98 (0.83-1.16) 03/19/17 13:45 CTA chest - no PE - Physical Exam Constitutional: no apparent distress, appears nourished, not in pain Cardiovascular: regular rate and rhythym, no murmur, rub, or gallop Respiratory: no respiratory distress, no rales or rhonchi, clear to auscultation Gastrointestinal: normoactive bowel sounds, soft, non-tender abdomen, no palpable masses Skin: no rashes or abrasions, no fluctuance, no induration Neurologic: AAOx3, sensation intact bilaterally Psychiatric: interacting appropriately, not anxious, not encephalopathic, thought process linear ICD10 Worksheet Patient Problems: Problems Problem Status Onset Hypoxia Acute Sepsis Acute
[2017-03-20] MEDS: CHOLECALCIFEROL VIT D3 1,000 UNITS TAB PO SCH (20:13)
--- NOTE | 2017-03-20 20:17 | PDMN ---
Medical Necessity Medical necessity: C/M review: est. > 2 MN LOS for eval and TX of acute and persistent Klebsiella severe sepsis - suspect pulmonary source, pneumonia, acute respiratory failure requiring ongoing IV Ceftriaxone, comorbid chronic condom catheter, hydrocephalus S/P JUICE STANDARDIZER shunt, CAd with positive stress test per 03/20/2017 Hospitalist progress note.
[2017-03-21 05:05] LABS: % IMMATURE GRANULYOCYTES 0.6 % (0.0-1.1); ABSOLUTE IMMATURE GRANULOCYTES 0.05 10^3/uL (0.00-0.10); ADD DIFF? NO; ADD MORPH? NO; ADD SCAN? NO; ATYPICAL LYMPHOCYTE FLAG 10 (0-99); FRAGMENT RBC FLAG 0 (0-99); HEMATOCRIT 40.7 % (40.0-51.0); HEMOGLOBIN 13.5 g/dL (13.7-17.5); LEFT SHIFT FLG 0 (0-99); LIPEMIA HEMOLYSIS FLAG 80 (0-99); MEAN CELL HEMOGLOBIN 29.5 pg (27.9-34.1); MEAN CELL HEMOGLOBIN CONCENTR. 33.2 g/dL (32.4-36.7); MEAN CELL VOLUME 88.9 fL (81.5-99.8); MEAN PLATELET VOLUME 9.4 fL (8.7-11.7); PLATELET CLUMPS FLAG 20 (0-99); PLATELET COUNT 279 10^3/uL (150-400); RED BLOOD CELL COUNT 4.58 10^6/uL (4.40-6.38); RED CELL DISTRIBUTION WIDTH 14.1 % (11.5-15.2)
[2017-03-21 05:19] LABS: ANION GAP 7 mEq/L (8-16); CARBON DIOXIDE 31 mEq/l (22-31); CHLORIDE 104 mEq/L (97-110); GLOMERULAR FILTRATION RATE > 60; GLUCOSE 103 mg/dL (70-100); POTASSIUM 3.7 mEq/L (3.5-5.2); SODIUM 142 mEq/L (134-144)
[2017-03-21] MEDS: OXYBUTYNIN 5 MG EXT REL TAB PO SCH (06:29)
[2017-03-21] MEDS: METOCLOPRAMIDE 10 MG TAB PO SCH ×4 (06:29→20:50)
[2017-03-21] MEDS: ENOXAPARIN 40 MG/0.4 ML SYR SC SCH (09:30)
[2017-03-21] MEDS: GABAPENTIN 300 MG CAP PO SCH ×2 (09:30→20:50)
[2017-03-21] MEDS: OMEGA-3 FATTY ACIDS 1,000 MG CAP PO SCH (09:31)
[2017-03-21] MEDS: SENNOSIDES/DOCUSATE SODIUM TAB PO SCH ×2 (09:31→20:50)
[2017-03-21] MEDS: MAGNESIUM HYDROXIDE 30 ML UDCUP PO SCH (09:31)
[2017-03-21] MEDS: BACLOFEN 20 MG TAB PO SCH ×2 (09:32→20:50)
[2017-03-21] MEDS: METOPROLOL SUCCINATE XR 25 MG TAB PO SCH (09:32)
[2017-03-21] MEDS: ATORVASTATIN CALCIUM 20 MG TAB PO SCH (09:32)
--- NOTE | 2017-03-21 10:30 | PCMIDPN ---
Assessment/Plan: # Klebsiella pneumoniae bacteremia, suspect pulmonary source although imaging somewhat unimpressive for pneumonia. Patient has clinically improved with decreased cough and leukocytosis has resolved. Other considerations include urine (see below) --continue IV ceftriaxone --awaiting susceptibilities of Klebsiella to determine if IV antibiotics versus oral Levaquin. Did review risks and benefits of PICC line placement with patient at bedside today and case of needing IV therapy. # polymicrobial urine culture with fairly bland urinalysis : Suspect bacteriuria Medications Ceftriaxone 1 g IV daily, #3 Microbiology 03/19 blood culture 05/10: Klebsiella 03/19 urine culture: 100,000 Proteus, and 100,000 of 2 other gram-negative rods 03/19 respiratory PCR negative Subjective: Patient reports his cough is improved. He continues to ask me daily for a beer. Denies other specific complaints Objective: Vital Signs Temp Pulse Resp BP Pulse Ox 37.1 C 77 16 107/69 92 03/21/17 07:40 03/21/17 07:40 03/21/17 07:40 03/21/17 07:40 03/21/17 07:40 Laboratory Results 03/21/17 04:28 03/21/17 04:28 03/20/17 03/21/17 03/22/17 05:59 05:59 05:59 Intake Total 650 Output Total 1025 Balance -375 - Physical Exam General Appearance: alert EENT: No scleral icterus Respiratory: coarse breath sounds, No accessory muscle use Cardiac/Chest: regular rate, rhythm Extremities: pedal edema Abdomen: normal bowel sounds, non-tender, soft, distended (Slight) Skin: other (Facial seborrhea) Neuro/Psych: alert, normal mood/affect, oriented x 3 ICD10 Worksheet Patient Problems: Problems Problem Status Onset Hypoxia Acute Sepsis Acute
[2017-03-21] MEDS ORDERED: FLU VACC QS 2017-18 (3YR+)/PF 0.5 ML SYR (FLUARIX QUAD) IM ONE (10:58)
[2017-03-21] MEDS: SODIUM FLUORIDE DT SCH ×2 (12:08→20:52)
[2017-03-21] MEDS: BENZONATATE 100 MG CAP PO PRN (12:19)
[2017-03-21] MEDS: IPRATROPIUM/ALBUTEROL 3 ML DEYVIAL IH SCH ×2 (14:57→15:46)
--- NOTE | 2017-03-21 17:42 | HOSPPROG ---
Hospitalist Progress Note Assessment/Plan: * Klebsiella severe sepsis - suspect pulmonary source -IV ceftriaxone -sensitivities pending -recurrent pneumonias and noted by nursing to cough with swallow -rule out aspiration - swallow eval pending * Pneumonia - possible aspiration -as above * Acute respiratory failure - improved * Chronic condom catheter -suspect urine culture all colonization * Hydrocephalus s/p SPEEDER TENDER shunt * CAD with + stress test -medical management unless develops symptoms Subjective: no new complaints. Objective: Vital Signs Temp Pulse Resp BP Pulse Ox 36.6 C 78 18 110/57 L 89 L 03/21/17 16:00 03/21/17 16:00 03/21/17 16:00 03/21/17 16:00 03/21/17 16:00 Laboratory Results 03/21/17 04:28 03/21/17 04:28 03/20/17 03/21/17 03/22/17 05:59 05:59 05:59 Intake Total 650 1330 Output Total 1025 Balance -375 1330 PT 12.9 SEC (12.0-15.0) 03/19/17 13:45 INR 0.98 (0.83-1.16) 03/19/17 13:45 - Physical Exam Constitutional: no apparent distress, appears nourished, not in pain Cardiovascular: regular rate and rhythym, no murmur, rub, or gallop Respiratory: no respiratory distress, no rales or rhonchi, clear to auscultation Gastrointestinal: normoactive bowel sounds, soft, non-tender abdomen, no palpable masses Skin: no rashes or abrasions, no fluctuance, no induration Neurologic: AAOx3, sensation intact bilaterally Psychiatric: interacting appropriately, not anxious, not encephalopathic, thought process linear ICD10 Worksheet Patient Problems: Problems Problem Status Onset Hypoxia Acute Sepsis Acute
[2017-03-21] MEDS: CHOLECALCIFEROL VIT D3 1,000 UNITS TAB PO SCH (20:50)
[2017-03-21] MEDS: guaiFENesin 600 MG TAB.ER PO SCH (20:50)
[2017-03-22] MEDS: IPRATROPIUM/ALBUTEROL 3 ML DEYVIAL IH SCH ×5 (01:39→23:15)
[2017-03-22] MEDS: OXYBUTYNIN 5 MG EXT REL TAB PO SCH (06:06)
[2017-03-22] MEDS: METOCLOPRAMIDE 10 MG TAB PO SCH ×4 (06:06→20:32)
[2017-03-22] MEDS: OMEGA-3 FATTY ACIDS 1,000 MG CAP PO SCH (09:03)
[2017-03-22] MEDS: METOPROLOL SUCCINATE XR 25 MG TAB PO SCH (09:03)
[2017-03-22] MEDS: SENNOSIDES/DOCUSATE SODIUM TAB PO SCH ×2 (09:03→20:33)
[2017-03-22] MEDS: guaiFENesin 600 MG TAB.ER PO SCH ×2 (09:03→20:31)
[2017-03-22] MEDS: MAGNESIUM HYDROXIDE 30 ML UDCUP PO SCH (09:03)
[2017-03-22] MEDS: GABAPENTIN 300 MG CAP PO SCH ×2 (09:04→20:33)
[2017-03-22] MEDS: BACLOFEN 20 MG TAB PO SCH ×2 (09:05→20:32)
[2017-03-22] MEDS: ATORVASTATIN CALCIUM 20 MG TAB PO SCH (09:10)
[2017-03-22] MEDS: BENZONATATE 100 MG CAP PO PRN (09:10)
[2017-03-22] MEDS: ENOXAPARIN 40 MG/0.4 ML SYR SC SCH (09:10)
[2017-03-22] MEDS: SODIUM FLUORIDE DT SCH ×2 (09:11→22:05)
--- NOTE | 2017-03-22 09:24 | PCMIDPN ---
Assessment/Plan: Assessment/Plan: 1. Klebsiella bacteremia: - possibly secondary to pneumonia. -wbc has improved overall - awaiting sensitivities -Currenlty on ceftriaxone 2. polymicrobial bactiuria: -patient has improved on currently therapy which doesn't cover all the organisms isolated -UA with minimal wbc Meds ceftraixone 1g daily- 03/20/17 Subjective: afebrile. o2 via nc at 2L. dry cough mostly. denies diarrhea Objective: Vital Signs Temp Pulse Resp BP Pulse Ox 36.9 C 75 20 108/66 94 03/22/17 07:26 03/22/17 07:26 03/22/17 07:26 03/22/17 07:26 03/22/17 07:26 Laboratory Results 03/21/17 04:28 03/21/17 04:28 03/21/17 03/22/17 03/23/17 05:59 05:59 05:59 Intake Total 650 1880 500 Output Total 1025 1600 Balance -375 280 500 - Physical Exam General Appearance: alert, no apparent distress Respiratory: coarse breath sounds Cardiac/Chest: regular rate, rhythm Abdomen: normal bowel sounds, non-tender, soft ICD10 Worksheet Patient Problems: Problems Problem Status Onset Hypoxia Acute Sepsis Acute
--- NOTE | 2017-03-22 17:15 | SOAPPROG ---
SOAP Progress Note Assessment/Plan: * Klebsiella severe sepsis - suspect pulmonary source -IV ceftriaxone, sens revwd, discussed care plan with Dr Mcgarry -recurrent pneumonias and noted by nursing to cough with swallow -rule out aspiration - swallow eval done today * Pneumonia - possible aspiration -as above * Acute respiratory failure - improved * Chronic condom catheter -suspect urine culture all colonization * Hydrocephalus s/p BRAIN PICKER shunt * CAD with + stress test -medical management unless develops symptoms Subjective: Coughing a lot, but overall says improved. No v. Just finished swallow study. Objective: Vital Signs Temp Pulse Resp BP Pulse Ox 98.4 F 84 20 98/68 L 90 L 03/22/17 15:43 03/22/17 15:43 03/22/17 15:43 03/22/17 15:43 03/22/17 15:43 Laboratory Results 03/21/17 04:28 03/21/17 04:28 03/21/17 03/22/17 03/23/17 11:59 11:59 11:59 Intake Total 1150 1880 850 Output Total 1025 1600 500 Balance 125 280 350 PT 12.9 SEC (12.0-15.0) 03/19/17 13:45 INR 0.98 (0.83-1.16) 03/19/17 13:45 Physical Exam - Physical Exam General Appearance: WD/WN, alert, no apparent distress Respiratory: decreased breath sounds, rhonchi, No respiratory distress Cardiac/Chest: normal peripheral pulses, regular rate, rhythm Abdomen: normal bowel sounds, non-tender, soft Neuro/Psych: alert, normal mood/affect ICD10 Worksheet Patient Problems: Problems Problem Status Onset Hypoxia Acute Sepsis Acute
[2017-03-22] MEDS: CHOLECALCIFEROL VIT D3 1,000 UNITS TAB PO SCH (20:33)
[2017-03-23] MEDS: IPRATROPIUM/ALBUTEROL 3 ML DEYVIAL IH SCH ×4 (05:42→22:02)
[2017-03-23] MEDS: METOCLOPRAMIDE 10 MG TAB PO SCH ×4 (06:15→20:34)
[2017-03-23] MEDS: OXYBUTYNIN 5 MG EXT REL TAB PO SCH (06:16)
[2017-03-23] MEDS: ENOXAPARIN 40 MG/0.4 ML SYR SC SCH (09:53)
[2017-03-23] MEDS: MAGNESIUM HYDROXIDE 30 ML UDCUP PO SCH (09:54)
[2017-03-23] MEDS: METOPROLOL SUCCINATE XR 25 MG TAB PO SCH (09:54)
[2017-03-23] MEDS: ATORVASTATIN CALCIUM 20 MG TAB PO SCH (09:55)
[2017-03-23] MEDS: OMEGA-3 FATTY ACIDS 1,000 MG CAP PO SCH (09:55)
[2017-03-23] MEDS: BACLOFEN 20 MG TAB PO SCH ×2 (09:55→20:35)
[2017-03-23] MEDS: SODIUM FLUORIDE DT SCH ×2 (09:56→21:31)
[2017-03-23] MEDS: guaiFENesin 600 MG TAB.ER PO SCH ×2 (09:56→20:35)
[2017-03-23] MEDS: GABAPENTIN 300 MG CAP PO SCH ×2 (09:56→20:35)
[2017-03-23] MEDS: BENZONATATE 100 MG CAP PO PRN ×2 (11:07→20:54)
--- NOTE | 2017-03-23 11:21 | SOAPPROG ---
SOAP Progress Note Assessment/Plan: * Klebsiella severe sepsis - suspect pulmonary source -IV ceftriaxone, sens revwd/basically [facility] sens -awaiting ID recs re treatment length, IV vs PO -recurrent pneumonias and noted by nursing to cough with swallow -minimal noted on swallow study * Pneumonia - possible aspiration -as above -recheck CXR * Acute respiratory failure -was improving, worse today -neg CTA at admission -nebs/pulm toilet -recheck CXR * Chronic condom catheter * Hydrocephalus s/p POSTAL SERVICE CLERK shunt * CAD with + stress test -medical management Subjective: Some decrease in cough. Decreased O2 noted, pending neb, CXR and labs ordered. Objective: Vital Signs Temp Pulse Resp BP Pulse Ox 98.3 F 85 20 113/75 86 L 03/23/17 08:06 03/23/17 10:50 03/23/17 10:50 03/23/17 09:54 03/23/17 11:14 Laboratory Results 03/21/17 04:28 03/21/17 04:28 03/21/17 03/22/17 03/23/17 11:59 11:59 11:59 Intake Total 1150 1880 850 Output Total 1025 1600 1125 Balance 125 280 -275 PT 12.9 SEC (12.0-15.0) 03/19/17 13:45 INR 0.98 (0.83-1.16) 03/19/17 13:45 Physical Exam - Physical Exam General Appearance: WD/WN, alert, no apparent distress Respiratory: decreased breath sounds, crackles (faint at B bases), No rales, No wheezing Cardiac/Chest: regular rate, rhythm, No edema Abdomen: soft, No guarding, No rebound Skin: normal color, warm/dry Neuro/Psych: alert, normal mood/affect ICD10 Worksheet Patient Problems: Problems Problem Status Onset Hypoxia Acute Sepsis Acute
[2017-03-23 11:57] LABS: % IMMATURE GRANULYOCYTES 0.4 % (0.0-1.1); ABSOLUTE IMMATURE GRANULOCYTES 0.03 10^3/uL (0.00-0.10); ADD DIFF? NO; ADD MORPH? NO; ADD SCAN? NO; ATYPICAL LYMPHOCYTE FLAG 10 (0-99); FRAGMENT RBC FLAG 0 (0-99); HEMATOCRIT 42.5 % (40.0-51.0); HEMOGLOBIN 13.8 g/dL (13.7-17.5); LEFT SHIFT FLG 0 (0-99); LIPEMIA HEMOLYSIS FLAG 80 (0-99); MEAN CELL HEMOGLOBIN 28.8 pg (27.9-34.1); MEAN CELL HEMOGLOBIN CONCENTR. 32.5 g/dL (32.4-36.7); MEAN CELL VOLUME 88.7 fL (81.5-99.8); MEAN PLATELET VOLUME 9.4 fL (8.7-11.7); PLATELET CLUMPS FLAG 0 (0-99); PLATELET COUNT 314 10^3/uL (150-400); RED BLOOD CELL COUNT 4.79 10^6/uL (4.40-6.38); RED CELL DISTRIBUTION WIDTH 13.9 % (11.5-15.2)
[2017-03-23 12:25] LABS: ANION GAP 12 mEq/L (8-16); CALCIUM 9.3 mg/dL (8.5-10.4); CARBON DIOXIDE 27 mEq/l (22-31); CHLORIDE 99 mEq/L (97-110); GLOMERULAR FILTRATION RATE > 60; GLUCOSE 144 mg/dL (70-100); POTASSIUM 4.1 mEq/L (3.5-5.2); SODIUM 138 mEq/L (134-144)
--- NOTE | 2017-03-23 15:15 | PCMIDPN ---
Assessment/Plan: Assessment: Klebsiella bacteremia. Uncertain source. Chest x-ray and initial CT scan do not appear to support a focus of infection consistent with bacteremia. However the urinalysis also does not support significant inflammation. He does have polymicrobial bacteriuria but that is secondary to his catheter status. Even though the etiology is indeterminate I suspect 2 weeks of antibiotics is reasonable. Will discontinue his IV ceftriaxone and start Levaquin 750 mg daily tomorrow. Plan: 1. Discontinue ceftriaxone. 2. Start Levaquin 750 mg p.o. Q 24 hours tomorrow. 3. Suspected 2 week duration from positive blood cultures. 03/23/17 18:42 03/23/17 18:43 Subjective: Patient is resting in his hospital bed. Notes some discomfort in his right leg. Otherwise no fevers or chills. 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 Objective: Ceftriaxone # 4 Vital Signs Temp Pulse Resp BP Pulse Ox 36.8 C 91 18 101/65 90 L 03/23/17 11:36 03/23/17 11:36 03/23/17 11:36 03/23/17 11:36 03/23/17 11:36 Laboratory Results 03/23/17 11:40 03/23/17 11:40 03/22/17 03/23/17 03/24/17 05:59 05:59 05:59 Intake Total 1880 1350 Output Total 1600 1125 700 Balance 280 225 -700 - Physical Exam General Appearance: WD/WN, alert, no apparent distress, non-toxic, other ( Neurologically compromised.) Respiratory: lungs clear, normal breath sounds, No respiratory distress Cardiac/Chest: regular rate, rhythm, No tachycardia Skin: normal color, warm/dry, No rash Neuro/Psych: alert, normal mood/affect, oriented x 3 ICD10 Worksheet Patient Problems: Problems Problem Status Onset Hypoxia Acute Sepsis Acute
[2017-03-23] MEDS: SENNOSIDES/DOCUSATE SODIUM TAB PO SCH (20:36)
[2017-03-23] MEDS: CHOLECALCIFEROL VIT D3 1,000 UNITS TAB PO SCH (20:36)
[2017-03-24] MEDS: BENZONATATE 100 MG CAP PO PRN ×2 (05:35→21:54)
[2017-03-24] MEDS: OXYBUTYNIN 5 MG EXT REL TAB PO SCH (05:36)
[2017-03-24] MEDS: METOCLOPRAMIDE 10 MG TAB PO SCH ×4 (05:36→22:04)
[2017-03-24] MEDS: IPRATROPIUM/ALBUTEROL 3 ML DEYVIAL IH SCH ×3 (05:37→17:50)
[2017-03-24] MEDS: OMEGA-3 FATTY ACIDS 1,000 MG CAP PO SCH (09:23)
[2017-03-24] MEDS: ATORVASTATIN CALCIUM 20 MG TAB PO SCH (09:23)
[2017-03-24] MEDS: BACLOFEN 20 MG TAB PO SCH ×2 (09:24→22:04)
[2017-03-24] MEDS: ENOXAPARIN 40 MG/0.4 ML SYR SC SCH (09:25)
[2017-03-24] MEDS: GABAPENTIN 300 MG CAP PO SCH ×2 (09:25→22:04)
[2017-03-24] MEDS: guaiFENesin 600 MG TAB.ER PO SCH ×2 (09:28→21:54)
[2017-03-24] MEDS: MAGNESIUM HYDROXIDE 30 ML UDCUP PO SCH (09:39)
[2017-03-24] MEDS: METOPROLOL SUCCINATE XR 25 MG TAB PO SCH (09:40)
[2017-03-24] MEDS: SENNOSIDES/DOCUSATE SODIUM TAB PO SCH ×2 (09:42→22:06)
[2017-03-24] MEDS: SODIUM FLUORIDE DT SCH ×2 (09:46→22:27)
--- NOTE | 2017-03-24 11:16 | ASMTCMCOM ---
CM Note CM Note Notes: The following CM note was charted in [employer] 03/21/17 and did not save/lock written by CM Laura Palmer: Spoke with MD. Concern for aspiration . Swallow study tomorrow. CM to follow. Date Signed: 03/24/2017 11:15 AM Electronically Signed By:STANLEY Godinez
--- NOTE | 2017-03-24 15:00 | ASMTCMCOM ---
CM Note CM Note Notes: Pt now on oral antibiotics. Pt plans to d/c home w continued unskilled care from [facility] [phone]. Pt reports his wc is not here and he would need a [facility] stretcher transport home. Date Signed: 03/24/2017 02:59 PM Electronically Signed By:STANLEY Godinez
--- NOTE | 2017-03-24 15:35 | ASMTCMCOM ---
CM Note CM Note Notes: Call from CHRISTIANO Arroyo with [facility] ([phone]) inquiring about patient's discharge. Per Dina, patient will be able to receive 14 hrs of help/day beginning tomorrow. They do not have overnight coverage for patient, so she cautioned against his discharge this evening. I faxed updated notes ([phone]) to Dina. Hospitalist notified of the above and will plan to d/c early tomorrow morning. CM will facilitate discharge and transportation home. Date Signed: 03/24/2017 03:34 PM Electronically Signed By:Jacki Hampton RN
--- NOTE | 2017-03-24 15:50 | HOSPPROG ---
Hospitalist Progress Note Assessment/Plan: 56 yo M with hx of hydrocephalus with CLIENT DEVELOPMENT MANAGER shunt pw sepsis and klebsiella bacteremia # klebsiella bacteremia: uncertain source, does not appear c/w pna or uti, surveillance cultures have cleared. Treating currently with CTX with plan to transition to oral levofloxacin in the am and completion of total 2 week course # aspiration pna: as above, imaging not completely consistent with pneumonia though does have risk for aspiration and had some element of dysphagia noted on videofluoro # acute on chronic hypoxic respiratory failure: at baseline uses only 1L of o2 at night, currently requiring 4L to maintain o2 sats in the low 90s. Related to possible pna as above as well as atelectasis. IS, OOB to chair. # chronic medical issues: hydrocephalus with CLIENT DEVELOPMENT MANAGER shunt, CAD, chronic condom catheter--continue usual mgmt # IP status # dispo to home with caregiver as prior routine likely on 03/25 patient new to my care. Old records reviewed and summarized as above. Care plan reviewed with CM> Subjective: no significant overnight events, patient notes feeling better than yesterday Objective: Vital Signs Temp Pulse Resp BP Pulse Ox 36.7 C 74 16 105/67 93 03/24/17 15:22 03/24/17 15:22 03/24/17 15:22 03/24/17 15:22 03/24/17 15:22 Laboratory Results 03/23/17 11:40 03/23/17 11:40 03/23/17 03/24/17 03/25/17 05:59 05:59 05:59 Intake Total 1350 1050 750 Output Total 1125 3000 325 Balance 225 -1950 425 PT 12.9 SEC (12.0-15.0) 03/19/17 13:45 INR 0.98 (0.83-1.16) 03/19/17 13:45 awake alert chronically ill appearing anicteric op clear rrr no mrg coarse bs, dec at bases soft nt nd no cce warm dry well perfused oriented appropriate ICD10 Worksheet Patient Problems: Problems Problem Status Onset Hypoxia Acute Sepsis Acute
[2017-03-24] MEDS: CHOLECALCIFEROL VIT D3 1,000 UNITS TAB PO SCH (22:04)
[2017-03-25] MEDS: IPRATROPIUM/ALBUTEROL 3 ML DEYVIAL IH SCH ×3 (00:49→11:13)
[2017-03-25] MEDS: OXYBUTYNIN 5 MG EXT REL TAB PO SCH (05:33)
[2017-03-25] MEDS: METOCLOPRAMIDE 10 MG TAB PO SCH ×2 (05:33→11:25)
[2017-03-25] MEDS: ATORVASTATIN CALCIUM 20 MG TAB PO SCH (08:43)
[2017-03-25] MEDS: BACLOFEN 20 MG TAB PO SCH (08:44)
[2017-03-25] MEDS: guaiFENesin 600 MG TAB.ER PO SCH (08:44)
[2017-03-25] MEDS: GABAPENTIN 300 MG CAP PO SCH (08:44)
[2017-03-25] MEDS: OMEGA-3 FATTY ACIDS 1,000 MG CAP PO SCH (08:44)
[2017-03-25] MEDS: MAGNESIUM HYDROXIDE 30 ML UDCUP PO SCH (08:47)
[2017-03-25] MEDS: SENNOSIDES/DOCUSATE SODIUM TAB PO SCH (08:47)
[2017-03-25] MEDS: ENOXAPARIN 40 MG/0.4 ML SYR SC SCH (08:48)
[2017-03-25] MEDS: METOPROLOL SUCCINATE XR 25 MG TAB PO SCH (09:48)
[2017-03-25] MEDS: SODIUM FLUORIDE DT SCH (09:49)
[2017-03-25 11:28] VITALS: BP 109/70; PULSE 84; RESP 16; TEMP 98.2; O2SAT 92
--- NOTE | 2017-03-25 11:32 | PDHOMEO2F ---
Home Oxygen Face to Face Home Orders: I certify that a physician or a nurse practitioner or physician's accounting manager assistant controller has had a [id number] encounter with this patient on the date of this order due to the diagnosis listed, which relates to the primary reason the patient requires home oxygen. Alternative treatments have been tried, or considered, and deemed ineffective. It is anticipated that supplemental oxygen will result in improvement with treatment. Home oxygen qualifying diagnosis: aspiration pna, atelectasis Home oxygen secondary diagnosis: mildred/ohs SpO2 on room air (%): 87 Frequency of home oxygen needed: continuous Home oxygen liters per minute: 4 Home oxygen delivery device: nasal cannula Concentrator: Yes E-tanks for mobility and back up: Yes If ordering portable O2, is the patient mobile in the home?: Yes I certify that, based on these findings, the home oxygen is medically necessary for this patient for the following length of time. Length of time home oxygen needed: 1 month
--- NOTE | 2017-03-25 11:32 | PDIAF ---
- Diagnosis Code Status: Full Code - Medication Management Discharge Medications: Medications to Continue on Transfer Baclofen [Baclofen 20 mg (*)] 20 mg PO BID 03/24/12 [Last Taken 03/26/16 07:00] Cholecalciferol Vit D3 [Vitamin D3 (*)] 1,000 units PO HS 03/24/12 [Last Taken 03/25/16] Gabapentin [Neurontin 300 MG (*)] 300 mg PO BID 03/24/12 [Last Taken 04/22/16] Metoclopramide [Reglan 5 mg (*)] 5 mg PO QID 03/24/12 [Last Taken 03/26/16 07:00 ] Oxybutynin Chloride Xl [Ditropan Xl 5mg (*)] 5 mg PO DAILY06 03/24/12 [Last Taken 04/22/16] Polyethylene Glycol 3350 [Miralax 17 gm (*)] 17 gm PO BID 03/24/12 [Last Taken 04/21/16] Sennosides/Docusate Sodium [Senna Plus Tablet] 1 each PO BID 03/24/12 [Last Taken 04/21/16] Atorvastatin Calcium [Lipitor 20 mg (*)] 20 mg PO DAILY 03/19/17 [Last Taken Unknown] Bisacodyl [Dulcolax] 10 mg RC DAILY 03/19/17 [Last Taken Unknown] Furosemide [Lasix 80 MG (*)] 80 mg PO DAILY 03/19/17 [Last Taken Unknown] Hydrocodone/Acetaminophen [[place] 5/325 (*)] 1 - 2 tab PO Q4H PRN 03/19/17 [Last Taken Unknown] Magnesium Hydroxide [Milk of Magnesia] 400 mg PO DAILY 03/19/17 [Last Taken Unknown] Metoprolol Succinate Xr [Toprol Xl 25 mg (*)] 25 mg PO DAILY 03/19/17 [Last Taken Unknown] Nystatin Powder [Mycostatin Powder] 1 raimundo TP DAILY PRN 03/19/17 [Last Taken Unknown] [place]-3 Fatty Acids [Fish Oil 1000 mg (*)] 1,000 mg PO DAILY 03/19/17 [Last Taken Unknown] Potassium Cl [Klor-Con 20 meq (*)] 40 meq PO BID 03/19/17 [Last Taken Unknown] Sodium Fluoride [Prevident 5000] 100 ml DT BID 03/19/17 [Last Taken Unknown] guaiFENesin [Mucinex 600 MG (*)] 600 mg PO BID PRN 03/19/17 [Last Taken Unknown] Benzonatate [Tessalon Pearles] 200 mg PO TID PRN #20 cap 03/25/17 [Last Taken Unknown] levOFLOXACIN [levAQUIN (*)] 750 mg PO DAILY AT 10AM #8 tab 03/25/17 [Last Taken Unknown] Discharge Medications: Refer to the Discharge Home Medication list for PRN reason. - Orders Services needed: Home Care, Registered Nurse, Certified Surg Tech Home Care Face to Face: I certify that this patient was under my care and that I had the required [id number] encounter meeting the encounter requirements on the discharge day. My findings support the fact that the patient is homebound as defined in Home Care Face to Face Continued: [facility] Chapter 7 Medicare Benefits Manual 30.1.1 , The condition of the patient is such that there exists a normal inability to leave home and consequently, leaving home would require a considerable and taxing effort. Diet Texture: Regular Texture Diet, Thin Liquids, Meds Whole w/Liquids - Follow Up Care Current Providers and Referrals: Patient,NotPresent [Unknown] - As per Instructions
--- NOTE | 2017-03-25 11:33 | PDDCSUM ---
Discharge Summary Discharge Summary: Dates of service 03/19-03/25/17 Consultations: ID Procedures performed: videofluoro swallow evaluation Hospital course by problem: # klebsiella bacteremia: uncertain source, does not appear c/w pna or uti, surveillance cultures have cleared. ID consulted and recommended completing 2 week course of abx with levofloxacin. # aspiration pna: as above, imaging not completely consistent with pneumonia though does have risk for aspiration and had some element of dysphagia noted on videofluoro. Continue aspiration precautions. # acute on chronic hypoxic respiratory failure: at baseline uses only 1L of o2 at night, currently requiring 4L to maintain o2 sats in the low 90s. Related to possible pna as above as well as atelectasis and given body habitus suspect underlying [place]/OHS. IS, OOB to chair. Will dc home on continuous O2 with a plan to f/u with pcp to determine how long to continue o2. # chronic medical issues: hydrocephalus with NURSING CONSULTANT shunt, CAD, chronic condom catheter--continue usual mgmt Discharged home with caregiver and home health > 35 minutes in dc more than half in coordination of care
--- NOTE | 2017-03-25 13:41 | PDIAF ---
- Diagnosis Code Status: Full Code - Medication Management Discharge Medications: Medications to Continue on Transfer Baclofen [Baclofen 20 mg (*)] 20 mg PO BID 03/24/12 [Last Taken 03/26/16 07:00] Cholecalciferol Vit D3 [Vitamin D3 (*)] 1,000 units PO HS 03/24/12 [Last Taken 03/25/16] Gabapentin [Neurontin 300 MG (*)] 300 mg PO BID 03/24/12 [Last Taken 04/22/16] Metoclopramide [Reglan 5 mg (*)] 5 mg PO QID 03/24/12 [Last Taken 03/26/16 07:00 ] Oxybutynin Chloride Xl [Ditropan Xl 5mg (*)] 5 mg PO DAILY06 03/24/12 [Last Taken 04/22/16] Polyethylene Glycol 3350 [Miralax 17 gm (*)] 17 gm PO BID 03/24/12 [Last Taken 04/21/16] Sennosides/Docusate Sodium [Senna Plus Tablet] 1 each PO BID 03/24/12 [Last Taken 04/21/16] Atorvastatin Calcium [Lipitor 20 mg (*)] 20 mg PO DAILY 03/19/17 [Last Taken Unknown] Bisacodyl [Dulcolax] 10 mg RC DAILY 03/19/17 [Last Taken Unknown] Furosemide [Lasix 80 MG (*)] 80 mg PO DAILY 03/19/17 [Last Taken Unknown] Hydrocodone/Acetaminophen [[place] 5/325 (*)] 1 - 2 tab PO Q4H PRN 03/19/17 [Last Taken Unknown] Magnesium Hydroxide [Milk of Magnesia] 400 mg PO DAILY 03/19/17 [Last Taken Unknown] Metoprolol Succinate Xr [Toprol Xl 25 mg (*)] 25 mg PO DAILY 03/19/17 [Last Taken Unknown] Nystatin Powder [Mycostatin Powder] 1 raimundo TP DAILY PRN 03/19/17 [Last Taken Unknown] [place]-3 Fatty Acids [Fish Oil 1000 mg (*)] 1,000 mg PO DAILY 03/19/17 [Last Taken Unknown] Potassium Cl [Klor-Con 20 meq (*)] 40 meq PO BID 03/19/17 [Last Taken Unknown] Sodium Fluoride [Prevident 5000] 100 ml DT BID 03/19/17 [Last Taken Unknown] guaiFENesin [Mucinex 600 MG (*)] 600 mg PO BID PRN 03/19/17 [Last Taken Unknown] Benzonatate [Tessalon Pearles] 200 mg PO TID PRN #20 cap 03/25/17 [Last Taken Unknown] levOFLOXACIN [levAQUIN (*)] 750 mg PO DAILY AT 10AM #8 tab 03/25/17 [Last Taken Unknown] Discharge Medications: Refer to the Discharge Home Medication list for PRN reason. - Orders Services needed: Home Care, Registered Nurse, Certified Jar Filler, Speech Language Pathologist Home Care Face to Face: I certify that this patient was under my care and that I had the required [id number] encounter meeting the encounter requirements on the discharge day. My findings support the fact that the patient is homebound as defined in Home Care Face to Face Continued: [facility] Chapter 7 Medicare Benefits Manual 30.1.1 , The condition of the patient is such that there exists a normal inability to leave home and consequently, leaving home would require a considerable and taxing effort. Diet Texture: Regular Texture Diet, Thin Liquids, Meds Whole w/Liquids - Follow Up Care Current Providers and Referrals: Patient,NotPresent [Unknown] - As per Instructions
--- NOTE | 2017-03-25 15:38 | ASMTCMCOM ---
CM Note CM Note Notes: Pt medically stable for d/c home with continued unskilled care of [facility] and [facility], RN/ANALYSIS ENGINEER/SOLID FIBER PASTER OPERATOR. Record does not show pt PCP so [facility] will follow up w pt and/or [facility] for the name of PCP who will continue to sign orders. Medicaid ambulance transport scheduled for 1400. [facility] notified and will meet pt at his home. [facility] faxed d/c meds. [facility] and d/c meds sent to [facility] in [employer]. Date Signed: 03/25/2017 03:38 PM Electronically Signed By:STANLEY Godinez
--- NOTE | 2017-03-25 15:40 | ASDISCHSUM ---
Discharge Information Plan Status:Home with Home Health Medically Cleared to Leave: Discharge Date:03/25/2017 02:30 PM CM D/C Disposition:Home Health Service ADT D/C Disposition:[id number] Projected Discharge Date:03/25/2017 11:00 AM Transportation at D/C:ALS/BLS Discharge Delay Reason: Follow-Up Date:03/25/2017 11:00 AM Discharge Slot: Final Diagnosis: Placement Information Referral Type:*Home Health Care Services Referral ID:[id number] Provider Name:Gianna Fairchild Address 1:[address] [place] Phone Number: Address 2: Fax Number: City:[place] Selection Factors: State:[place] Patient Contact Information Contact Name:NBA Relationship:Sister Address:[address] [place] [address] City:[facility] Phone: State/Zip Code:[place] [address] Email: Financial Information Financial Class: Primary Plan Desc:MEDICARE INPATIENT Primary Plan Number:[id number] Secondary Plan Desc:MEDICA[place] Secondary Plan Number:[id number] Assessment Information LACE LACE Acuity / Level of Care Answers: Was the patient admitted to hospital via the emergency department? Yes: Comorbidities - select Answers: Mild liver or renal all that apply disease Emergency dept visits in Answers: 3 last 6 months Score: 8 Date Signed: 03/19/2017 03:54 PM Electronically Signed By:Christina Daugherty RN [facility] JANNET Progress Note CM Note CM Note Notes: Please see ER report and history for detailed patient information. Patient is a very pleasant man admitted through the ER today to room 347. He is current with [facility] and receives home visits daily from a FRENCH WEAVER named "Matthew". I have LM with [facility] to inform of patient's admission and CM to follow with D/C planning prn Date Signed: 03/19/2017 04:12 PM Electronically Signed By:Christina Daugherty RN [facility] CM Progress Note CM Note CM Note Notes: Patient's mother Bev contacted and informed of patient's admission per patient request Date Signed: 03/19/2017 04:47 PM Electronically Signed By:Christina Daugherty RN [facility] CM Progress Note CM Note CM Note Notes: Chart reviewed. Per PT patient is at his baseline. He uses powered wheelchair and has caregiver 12 hours daily at home. He is dependent for all ALDs except feeding self. No current needs identified but CM available if needs arise. Date Signed: 03/20/2017 02:25 PM Electronically Signed By:Laura Palmer RN [facility] CM Progress Note CM Note CM Note Notes: The following CM note was charted in [employer] 03/21/17 and did not save/lock written by JANNET Palmer: Spoke with . Concern for aspiration . Swallow study tomorrow. CM to follow. Date Signed: 03/24/2017 11:15 AM Electronically Signed By:STANLEY Godinez [facility] CM Progress Note CM Note CM Note Notes: Pt now on oral antibiotics. Pt plans to d/c home w continued unskilled care from [facility] [phone]. Pt reports his wc is not here and he would need [facility] transport home. Date Signed: 03/24/2017 02:59 PM Electronically Signed By:STANLEY Godinez [facility] CM Progress Note CM Note CM Note Notes: Call from CHRISTIANO Arroyo with [facility] ([phone]) inquiring about patient's discharge. Per Dina, patient will be able to receive 14 hrs of help/day beginning tomorrow. They do not have overnight coverage for patient, so she cautioned against his discharge this evening. I faxed updated notes ([phone]) to Dina. Hospitalist notified of the above and will plan to d/c early tomorrow morning. CM will facilitate discharge and transportation home. Date Signed: 03/24/2017 03:34 PM Electronically Signed By:Jacki Hampton RN [facility] CM Progress Note CM Note CM Note Notes: Pt medically stable for d/c home with continued unskilled care of [facility] and [facility], RN/FRENCH WEAVER/LUMBER PRESS OPERATOR. Record does not show pt PCP so [facility] will follow up w pt and/or [facility] for the name of PCP who will continue to sign orders. Medicaid ambulance transport scheduled for 1400. [facility] notified and will meet pt at his home. [facility] faxed d/c meds. [facility] and d/c meds sent to [facility] in [employer]. Date Signed: 03/25/2017 03:38 PM Electronically Signed By:STNALEY Godinez Intervention Information Intervention Type:*IM-Signed Date of Service:03/25/2017 12:43 PM Patient Type:Inpatient Staff Member:Louise Franks Hours: Discipline: Severity: Comment:
== END 2017-03-25 14:30 | disposition home health service (06) | DRG 871 ==
LOC: EDUNIT# → INTOOBSV 15:42 → UNDOADMOB 15:42 → F3N 16:39 → INTOOBSV 03-20 11:37 → OBSVTOIN 03-20 11:37
PROVIDERS: ADMIT Internal Medicine; ATTEND Internal Medicine
DX: A41.89 Other specified sepsis (principal); J69.0 Pneumonitis due to inhalation of food and vomit; J96.21 Acute and chronic respiratory failure with hypoxia; G91.9 Hydrocephalus, unspecified; I50.30 Unspecified diastolic (congestive) heart failure; B96.1 Klebsiella pneumoniae [K. pneumoniae] as the cause of diseases classified elsewhere; I25.10 Atherosclerotic heart disease of native coronary artery without angina pectoris; E78.5 Hyperlipidemia, unspecified; G89.29 Other chronic pain; Z99.3 Dependence on wheelchair; Z23 Encounter for immunization; Z98.2 Presence of cerebrospinal fluid drainage device
CPT/HCPCS: 92526-GN; 92610-GN; 92611-GN; 97165-GO; G0008; G8987-GO-CM; G8988-GO-CM; G8989-GO-CM; G8996-GN-CI; G8997-GN-CI; G8998-GN-CI; J0456; J0696; J1650; Q9967

== ENCOUNTER 2017-04-16 09:06 | Inpatient (IN) | payer OTHER, MEDICAID ==
--- NOTE | 2017-04-16 09:03 | EDPHY ---
H & P Constitutional: Initial Vital Signs Temperature (C) 37.1 C 04/16/17 09:20 Heart Rate 92 04/16/17 09:20 Respiratory Rate 20 04/16/17 09:20 Blood Pressure 114/75 04/16/17 09:20 O2 Sat (%) 88 L 04/16/17 09:20 O2 Delivery Mode Oxymask O2 (L/minute) 5 Allergies/Adverse Reactions: No Allergies [NKDA] Allergy (Verified 04/16/17 09:20) Home Medications: Medication Instructions Recorded Baclofen [Baclofen 20 mg (*)] 20 mg PO BID 03/24/12 Gabapentin [Neurontin 300 MG (*)] 300 mg PO BID 03/24/12 Metoclopramide [Reglan 5 mg (*)] 5 mg PO QID 03/24/12 Oxybutynin Chloride Xl [Ditropan 5 mg PO DAILY06 03/24/12 Xl 5mg (*)] Atorvastatin Calcium [Lipitor 20 20 mg PO DAILY 03/19/17 mg (*)] Furosemide [Lasix 80 MG (*)] 80 mg PO DAILY 03/19/17 Metoprolol Succinate Xr [Toprol Xl 25 mg PO DAILY 03/19/17 25 mg (*)] Benzonatate [Tessalon Pearles (RX)] 200 mg PO TID PRN 04/16/17 Potassium Chloride [Klor-Con M20] 40 meq PO BID 04/16/17 Tamsulosin HCl [Flomax 0.4 MG (*)] 0.4 mg PO DAILY 04/16/17 guaiFENesin [Mucinex] 1,200 mg PO BID 04/16/17 Medical Decision Making - Diagnostics Imaging Results: Imaging Impressions Chest X-Ray 04/16/17 10:10 Impression: Diminished lung volumes with bilateral lower lobe atelectasis/ pneumonia, more pronounced on the right. Imaging: I viewed and interpreted images myself ED Course/Re-evaluation: CHIEF COMPLAINT: Cough, possible pneumonia HISTORY OF PRESENT ILLNESS: The patient is a 55 y/o male with a history of pneumonia and hydrocephalus with PROMOTIONS ASSISTANT SALES MARKETING shunt, arriving via EMS for a cough and possible pneumonia. On 03/19/17, 1 month ago, he was admitted for a possible pneumonia. He was discharged to [facility], but is currently living independently. Upon discharge, he was prescribed a 2 week course of Levofloxacin. Uses home oxygen at night. Denies chest pain, fever, or other pertinent symptoms. Prior medical records reviewed including discharge summary from Dr. Smith on 03/25/17. REVIEW OF SYSTEMS: A 10 point review of systems was performed and is negative with the exception of the elements mentioned in the history of present illness. PHYSICAL EXAM: HR, BP, O2 Sat, RR. Temp noted General Appearance: Mildly diaphoretic. Alert, well hydrated, appropriate, and non-toxic appearing. Head: Atraumatic without scalp tenderness or obvious injury Eyes: Pupils equal, round, reactive to light and accommodation, EOMI, no trauma , no injection. Ears: Clear bilaterally, no perforation, normal landmarks Nose: Atraumatic, no rhinorrhea, clear. Throat: Mucus membranes moist. Neck: Supple, nontender, no lymphadenopathy. Respiratory: Coarse rhonchi everywhere. No retractions, no wheezes, and no accessory muscle use. Cardiovascular: Regular rate and rhythm, no murmurs, rubs, or gallops. Good capillary refill all extremities. Gastrointestinal: Abdomen is soft, nontender, non-distended, no masses, no rebound, no guarding, no peritoneal signs. Musculoskeletal: Normal active ROM of all extremities, atraumatic. Neurological: Alert, appropriate, and interactive. Non-focal neuro. Skin: No rashes, good turgor, no nodules on palpation. Past medical history: Hydrocephalus with PROMOTIONS ASSISTANT SALES MARKETING shunt, CAD Past surgical history: PROMOTIONS ASSISTANT SALES MARKETING shunt Family history: Denies Social history: Lives in [place], single, nonsmoker DIAGNOSTICS/PROCEDURES/CRITICAL CARE TIME: Chest X-ray: Right heart border positive for pneumonia DIFFERENTIAL DIAGNOSIS: The differential diagnosis for the patient's shortness of breath and hypoxemia included but was not limited to pneumonia, myocardial infarction, acute mountain sickness, high altitude pulmonary edema, congestive heart failure, and pulmonary embolus. MEDICAL DECISION MAKING: The patient is a 55 y/o male with a history of pneumonia and hydrocephalus with a PROMOTIONS ASSISTANT SALES MARKETING shunt, arriving via EMS presenting with a cough and possible pneumonia. He was admitted on 03/19/17 for a possible pneumonia and discharged to [facility]. He has coarse rhonchi throughout his lungs and is hypoxemic. He will require an increase oxygen requirement due to an A-a gradient. Plan on labs, BMP , CBC, blood culture, and chest x-ray. 1011: I reviewed the patient's chest/thorax CTA from 03/19/17. There was no evidence of a PE or pneumonia at this time. 1020: Patient's labs are normal. 1025: Spoke with Dr. Kelly, radiologist, he reports the right heart border is positive for pneumonia. The patient's A-a gradient is most likely due to this pneumonia. He is not septic and does not have a white count. He will need to admitted for pneumonia and hypoxemia. 2g IV Cefepime and 750mg IV Levaquin administered. 1039: Spoke to hospitalist service, Dr. Coughlin accepts admission of this patient. Reassessed patient and discussed plan for admission; patient is comfortable with this plan. - Data Points Laboratory Results: Laboratory Results 04/16/17 09:15 04/16/17 09:15 04/16/17 04/16/17 04/16/17 09:20 09:20 09:15 WBC RBC Hgb Hct MCV MCH MCHC RDW Plt Count MPV Neut % (Auto) Lymph % (Auto) [place] % (Auto) Eos % (Auto) Baso % (Auto) Nucleat RBC Rel Count Absolute Neuts (auto) Absolute Lymphs (auto) Absolute Monos (auto) Absolute Eos (auto) Absolute Basos (auto) Absolute Nucleated RBC Immature Gran % Immature Gran # PT INR APTT D-Dimer 1.07 ug/mLFEU H ug/mLFEU (0.00-0.50) VBG Lactic Acid 1.8 mmol/L mmol/L (0.7-2.1) Sodium Potassium Chloride Carbon Dioxide Anion Gap BUN Creatinine Estimated GFR Glucose Calcium Total Bilirubin Procalcitonin Pending 04/16/17 04/16/17 04/16/17 09:15 09:15 09:15 WBC 5.57 10^3/uL 10^3/uL (3.80-9.50) RBC 5.04 10^6/uL 10^6/uL (4.40-6.38) Hgb 14.8 g/dL g/dL (13.7-17.5) Hct 45.2 % % (40.0-51.0) MCV 89.7 fL fL (81.5-99.8) MCH 29.4 pg pg (27.9-34.1) MCHC 32.7 g/dL g/dL (32.4-36.7) RDW 14.8 % % (11.5-15.2) Plt Count 189 10^3/uL 10^3/uL (150-400) MPV 10.2 fL fL (8.7-11.7) Neut % (Auto) 61.5 % % (39.3-74.2) Lymph % (Auto) 19.0 % % (15.0-45.0) [place] % (Auto) 14.4 % H % (4.5-13.0) Eos % (Auto) 3.8 % % (0.6-7.6) Baso % (Auto) 0.9 % % (0.3-1.7) Nucleat RBC Rel Count 0.0 % % (0.0-0.2) Absolute Neuts (auto) 3.43 10^3/uL 10^3/uL (1.70-6.50) Absolute Lymphs (auto) 1.06 10^3/uL 10^3/uL (1.00-3.00) Absolute Monos (auto) 0.80 10^3/uL 10^3/uL (0.30-0.80) Absolute Eos (auto) 0.21 10^3/uL 10^3/uL (0.03-0.40) Absolute Basos (auto) 0.05 10^3/uL 10^3/uL (0.02-0.10) Absolute Nucleated RBC 0.00 10^3/uL 10^3/uL (0-0.01) Immature Gran % 0.4 % % (0.0-1.1) Immature Gran # 0.02 10^3/uL 10^3/uL (0.00-0.10) PT 13.0 SEC SEC (12.0-15.0) INR 0.96 (0.83-1.16) APTT 25.3 SEC SEC (23.0-38.0) D-Dimer VBG Lactic Acid Sodium 148 mEq/L H mEq/L (134-144) Potassium 4.2 mEq/L mEq/L (3.5-5.2) Chloride 105 mEq/L mEq/L (97-110) Carbon Dioxide 29 mEq/l mEq/l (22-31) Anion Gap 14 mEq/L mEq/L (8-16) BUN 13 mg/dL mg/dL (7-23) Creatinine 1.2 mg/dL mg/dL (0.7-1.3) Estimated GFR > 60 Glucose 119 mg/dL H mg/dL (70-100) Calcium 9.4 mg/dL mg/dL (8.5-10.4) Total Bilirubin 0.7 mg/dL mg/dL (0.1-1.4) Procalcitonin Medications Given: Discontinued Medications Levofloxacin/Dextrose (Levaquin 750 Mg (Premix)) 150 mls @ 100 mls/hr IV EDNOW ONE PRN Reason: Protocol Stop: 04/16/17 11:57 Last Admin: 04/16/17 10:47 Dose: 150 mls Departure - Departure Disposition: [facility] Inpatient Acute Clinical Impression: Hypoxia Pneumonia Qualifiers: Pneumonia type: due to unspecified organism Laterality: bilateral Lung location : unspecified part of lung Qualified Code(s): J18.9 - Pneumonia, unspecified organism Condition: Fair Referrals: Patient,NotPresent [Unknown] - As per Instructions Report Scribed for: Keith Fernández Report Scribed by: Aimee Garcia Date of Report: 04/16/17 Time of Report: 09:03
[2017-04-16 09:21] LABS: % IMMATURE GRANULYOCYTES 0.4 % (0.0-1.1); ABSOLUTE IMMATURE GRANULOCYTES 0.02 10^3/uL (0.00-0.10); ADD DIFF? NO; ADD MORPH? NO; ADD SCAN? NO; ATYPICAL LYMPHOCYTE FLAG 10 (0-99); FRAGMENT RBC FLAG 0 (0-99); HEMATOCRIT 45.2 % (40.0-51.0); HEMOGLOBIN 14.8 g/dL (13.7-17.5); LEFT SHIFT FLG 0 (0-99); LIPEMIA HEMOLYSIS FLAG 80 (0-99); MEAN CELL HEMOGLOBIN 29.4 pg (27.9-34.1); MEAN CELL HEMOGLOBIN CONCENTR. 32.7 g/dL (32.4-36.7); MEAN CELL VOLUME 89.7 fL (81.5-99.8); MEAN PLATELET VOLUME 10.2 fL (8.7-11.7); PLATELET CLUMPS FLAG 0 (0-99); PLATELET COUNT 189 10^3/uL (150-400); RED BLOOD CELL COUNT 5.04 10^6/uL (4.40-6.38); RED CELL DISTRIBUTION WIDTH 14.8 % (11.5-15.2)
[2017-04-16 09:31] LABS: APTT 25.3 SEC (23.0-38.0); INR 0.96 (0.83-1.16)
[2017-04-16 09:33] LABS: BILIRUBIN,TOTAL 0.7 mg/dL (0.1-1.4); CALCIUM 9.4 mg/dL (8.5-10.4); CARBON DIOXIDE 29 mEq/l (22-31); CHLORIDE 105 mEq/L (97-110); CREATININE 1.2 mg/dL (0.7-1.3); GLOMERULAR FILTRATION RATE > 60; GLUCOSE 119 mg/dL (70-100); SODIUM 148 mEq/L (134-144)
[2017-04-16 09:43] LABS: ANION GAP 14 mEq/L (8-16); POTASSIUM 4.2 mEq/L (3.5-5.2)
[2017-04-16] MEDS ORDERED: CEFEPIME HCL 2 GM in D5W 100 ML IV ONE (10:28)
[2017-04-16] MEDS ORDERED: IOPAMIDOL (ISOVUE 370) 100 ML BTL IV ONE ×2 (12:34→13:42)
[2017-04-16] MEDS ORDERED: BENZONATATE 100 MG CAP PO PRN (13:21)
[2017-04-16] MEDS ORDERED: ONDANSETRON 4 MG/2 ML VIAL IVP PRN (13:33)
[2017-04-16] MEDS ORDERED: oxyCODONE IR 5 MG TAB PO PRN (13:33)
[2017-04-16] MEDS ORDERED: ACETAMINOPHEN 325 MG TAB PO PRN (13:33)
[2017-04-16] MEDS ORDERED: ONDANSETRON DISINTEGRATING 4 MG TAB PO PRN (13:33)
[2017-04-16] MEDS ORDERED: 1/2 NS 1,000 ML IV SCH (13:45)
--- NOTE | 2017-04-16 14:40 | GHP ---
[f rep st] HISTORY AND PHYSICAL DATE OF ADMISSION: 04/16/2017 CHIEF COMPLAINT: Coughing, difficulty breathing. HISTORY OF PRESENT ILLNESS: A 56-year-old man, with recent admission for similar complaints, present s with about 24 hours of worsening cough. He has been producing significant sputum. This started ab ruptly yesterday. Associated with some shortness of breath. He has not had any exposure to anyone w ho has been sick. In the emergency department, he was hypoxic on 2 L. History notable for having kwong d hydrocephalus as an , has a CAR DUMPER OPERATOR shunt in place. About 10 years ago, he started losing functio lux in his arms, as well as his legs and his trunk, due to what sounds like spinal nerve compromise. He currently has a MITER GRINDER OPERATOR who takes care of him throughout the day but is not there at night. Recent admission notable for having Klebsiella pneumoniae bacteremia of unclear source. He completed a course of Levaquin for this. He was treated for pneumonia at that time. He underwent a video swa llow study on that admission, which showed some mild oropharyngeal dysphagia with no aspiration. After discharge, he reports that he was discharged home. He was initially on oxygen, though had been down to using oxygen only at night. PAST MEDICAL/SURGICAL HISTORY: 1. History of congenital hydrocephalus status post CAR DUMPER OPERATOR shunt. 2. Paraplegia, decreased truncal support due to what appears to be spinal nerve compromise that occu rred 10 years ago. 3. Hyperlipidemia. 4. Neuropathy. 5. Diastolic heart failure, followed by Dr. Barrera. 6. GERD. 7. Depression. 8. Urinary retention. He has a condom catheter in place. 9. Chronic hypoxemic respiratory failure. 10. Nonobstructive coronary artery disease. 11. Neck and spinal surgery. MEDICATIONS: Please see medication reconciliation. ALLERGIES: None. FAMILY HISTORY: No [place] or CVA. SOCIAL HISTORY: He lives in [place]. 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 He uses a [employer] wheelchair. He does not drink or smoke. REVIEW OF SYSTEMS: 10-point review of systems is conducted and is negative except per HPI. PHYSICAL EXAM: VITAL SIGNS: Blood pressure 101/73, heart rate 81, respiration rate 16, satting 95% on 5 L oxy mask. Temperature is 37.1 GENERAL: The patient is a pleasant man who appears somewhat sh ort of breath. HEENT: Normocephalic, atraumatic. He has an oxygen mask in place. CARDIOVASCULAR: Shows a regular rate and rhythm. No murmurs, rubs, or gallops. PULMONARY: Diffuse rhonchi. He in termittently has trouble clearing his secretions. ABDOMEN: Soft, nontender, nondistended. SKIN: N o rash. : Condom catheter in place. NEUROLOGIC: Shows him to be paraplegic. He has decreased s trength in his left arm. PSYCHIATRIC: Normal mood and affect. LABORATORY: CBC is normal. D-dimer is 1.07. Lactate 1.8. Sodium is 148. Procalcitonin 0.17. DATA: 1. I personally viewed and interpreted chest x-ray. This shows decreased inspiration. I see a smal l amount of fluid in his major fissure. I do not see any focal infiltrates, though Radiology feels a s though there is a small infiltrate. 2. I reviewed his chart. IMPRESSION AND PLAN: A 56-year-old man, with recent hospitalization for similar, presents with some hypoxia and respiratory syncytial virus. 1. Acute hypoxic respiratory failure: Suspect that this is mostly due to respiratory syncytial viru s. He seems to be having trouble controlling his secretions; I will move him to the step-down unit f or closer monitoring overnight. We will empirically continue antibiotics for 24 hours, given the sev erity of his illness. Otherwise, we will provide him with pulmonary hygiene. Will also go ahead and check a CT angiogram, given his elevated D-dimer; we will also get a better look at his lung parench yma regardless. 2. Respiratory syncytial virus positive: Treatment is generally supportive, especially in immunocom petent adults. We will follow closely. 3. Infiltrate seen on chest x-ray: CT angiogram will help better elucidate this. 4. Volume status: He is chronically on furosemide; however, I think he is clinically dry. I will g masoud him half-normal saline for now and hold his furosemide. I note that he is slightly hyponatremic. 5. Hyponatremia: As above. 6. Hydrocephaly and ventriculoperitoneal shunt: He has severe urinary retention. We will follow is. 7. Diastolic dysfunction: Holding furosemide, as above. 8. Venous thromboembolism risk is moderate to high. I will give him Lovenox. 9. Recent Klebsiella pneumoniae bacteremia of unclear source: Blood cultures are pending. 10. Chronic pain: Continue his home medications. 11. Nonobstructive coronary artery disease: Medical management, beta davian, and statin. /[id number]/MODL
[2017-04-16] MEDS: IPRATROPIUM/ALBUTEROL 3 ML DEYVIAL IH SCH ×2 (15:42→21:41)
--- NOTE | 2017-04-16 15:42 | PDMN ---
Medical Necessity Medical necessity: C/M review: est. > 2 MN LOS for eval and TX of acute hypoxic respiratory failure, respiratory syncytial virus positive, infiltrate seen on CXR, hyponatremia requiring ongoing IV Levaquin, IV fluids, Duonebs, pulse oximetry, supplemental O2, pulmonary hygiene, comorbid hx congenital hydrocephalus S/P ALUMINUM POOL INSTALLER shunt, paraplegia, severe urinary retention, diastolic dysfunction, chronic pain, nonobstructive CAD, hyperlipidemia, GERD, depression , chronic hypoxemic respiratory failure, recent Klebsiella pneumoniae bacteremia of unclear source per H/P.
[2017-04-16] MEDS: predniSONE 20 MG TAB PO SCH (15:54)
[2017-04-16] MEDS: METOCLOPRAMIDE 5 MG TAB PO SCH ×2 (16:54→21:00)
[2017-04-16] MEDS ORDERED: NON-FORMULARY NEW DRUG (Guaifenesin [Mucinex] 1,200 MG) PO SCH (21:00)
[2017-04-16] MEDS ORDERED: POTASSIUM CL 20 MEQ TAB PO SCH (21:00)
[2017-04-16] MEDS: guaiFENesin 600 MG TAB.ER PO SCH (21:29)
[2017-04-16] MEDS: GABAPENTIN 300 MG CAP PO SCH (21:29)
[2017-04-16] MEDS: BACLOFEN 20 MG TAB PO SCH (21:32)
[2017-04-17] MEDS: IPRATROPIUM/ALBUTEROL 3 ML DEYVIAL IH SCH ×4 (05:13→21:09)
[2017-04-17 05:45] LABS: % IMMATURE GRANULYOCYTES 0.6 % (0.0-1.1); ABSOLUTE IMMATURE GRANULOCYTES 0.03 10^3/uL (0.00-0.10); ADD DIFF? NO; ADD MORPH? NO; ADD SCAN? NO; ATYPICAL LYMPHOCYTE FLAG 30 (0-99); FRAGMENT RBC FLAG 0 (0-99); HEMATOCRIT 41.1 % (40.0-51.0); HEMOGLOBIN 13.8 g/dL (13.7-17.5); LEFT SHIFT FLG 0 (0-99); LIPEMIA HEMOLYSIS FLAG 80 (0-99); MEAN CELL HEMOGLOBIN 29.4 pg (27.9-34.1); MEAN CELL HEMOGLOBIN CONCENTR. 33.6 g/dL (32.4-36.7); MEAN CELL VOLUME 87.6 fL (81.5-99.8); MEAN PLATELET VOLUME 9.8 fL (8.7-11.7); PLATELET CLUMPS FLAG 0 (0-99); PLATELET COUNT 205 10^3/uL (150-400); RED BLOOD CELL COUNT 4.69 10^6/uL (4.40-6.38); RED CELL DISTRIBUTION WIDTH 14.5 % (11.5-15.2)
[2017-04-17 05:58] LABS: ALANINE AMINOTRANSFERASE 47 IU/L (21-72); ALBUMIN 3.6 g/dL (3.5-5.0); ALKALINE PHOSPHATASE 86 IU/L (38-126); ANION GAP 11 mEq/L (8-16); ASPARTATE AMINOTRANSFERASE 21 IU/L (17-59); BILIRUBIN,TOTAL 0.6 mg/dL (0.1-1.4); CALCIUM 9.4 mg/dL (8.5-10.4); CARBON DIOXIDE 27 mEq/l (22-31); CHLORIDE 103 mEq/L (97-110); GLOMERULAR FILTRATION RATE > 60; GLUCOSE 119 mg/dL (70-100); POTASSIUM 4.1 mEq/L (3.5-5.2); SODIUM 141 mEq/L (134-144); TOTAL PROTEIN 6.4 g/dL (6.3-8.2)
[2017-04-17] MEDS: OXYBUTYNIN 5 MG EXT REL TAB PO SCH (06:22)
[2017-04-17] MEDS: METOCLOPRAMIDE 5 MG TAB PO SCH ×4 (06:22→19:56)
[2017-04-17] MEDS: ENOXAPARIN 40 MG/0.4 ML SYR SC SCH (08:56)
[2017-04-17] MEDS: TAMSULOSIN HCL 0.4 MG CAP PO SCH (08:57)
[2017-04-17] MEDS: ATORVASTATIN CALCIUM 20 MG TAB PO SCH (08:57)
[2017-04-17] MEDS: BACLOFEN 20 MG TAB PO SCH ×2 (08:57→19:56)
[2017-04-17] MEDS: predniSONE 20 MG TAB PO SCH (08:57)
[2017-04-17] MEDS: GABAPENTIN 300 MG CAP PO SCH ×2 (08:57→19:56)
[2017-04-17] MEDS: guaiFENesin 600 MG TAB.ER PO SCH ×2 (08:57→19:56)
[2017-04-17] MEDS ORDERED: FUROSEMIDE 80 MG TAB PO SCH (09:00)
[2017-04-17] MEDS ORDERED: METOPROLOL SUCCINATE XR 25 MG TAB PO SCH (09:00)
--- NOTE | 2017-04-17 10:39 | HOSPPROG ---
Hospitalist Progress Note Assessment/Plan: # acute hypoxic resp failure d/t RSV - cont steroids, abx, pulm hygiene, BDs - has difficulty clearing secretions - would like to keep in SDU overnight # RSV infection - supportive care # possible underlying bacterial pna - levaquin # hx congenital hydrocephalus s/p FARM FORESTRY AND GARDEN WORKERS shunt # neurologic compromise with urinary retention, weak bilat LE, weak LLE - at risk for pressure injuries - baclofen # hyperNa - resolved # hypotension - primarily when sleeping - hold metop # lovenox Subjective: feels better today; still SOB, hypoxic Objective: Vital Signs Temp Pulse Resp BP Pulse Ox 36.9 C 58 L 23 H 86/44 L 99 04/17/17 08:00 04/17/17 08:00 04/17/17 08:00 04/17/17 08:00 04/17/17 08:00 Microbiology 04/16/17 11:00 Respiratory Panel (PCR) - Final Nasal, Sinus - [place] Viral Transport Respiratory Syncytial Virus Laboratory Results 04/17/17 04:50 04/17/17 05:32 04/16/17 04/17/17 04/18/17 05:59 05:59 05:59 Intake Total 1325 Output Total 1450 Balance -125 PT 13.0 SEC (12.0-15.0) 04/16/17 09:15 INR 0.96 (0.83-1.16) 04/16/17 09:15 high risk given hypoxia and underlying comorbidities - Physical Exam Constitutional: chronically ill appearing Cardiovascular: regular rate and rhythym, no murmur, rub, or gallop Respiratory: no respiratory distress, rhonchi (R sided), No inspiratory crackles , No bronchial breath sounds Gastrointestinal: normoactive bowel sounds, soft, non-tender abdomen, no palpable masses ICD10 Worksheet Patient Problems: Problems Problem Status Onset Hypoxia Acute Sepsis Acute Pneumonia Acute
--- NOTE | 2017-04-17 14:23 | GCON ---
[f rep st] CONSULTATION PULMONARY/CRITICAL CARE CONSULTATION DATE OF CONSULTATION: 04/17/2017 REFERRING PHYSICIAN: Paul Rosales MD REASON FOR REFERRAL: Evaluation and management of cough and hypoxemia with RSV, bronchitis. HISTORY: The patient is a 56-year-old male with a history of paraplegia, who has a chronic mild coug h. He was admitted to the hospital 4 weeks ago with fever and increased cough. He was found to have Klebsiella bacteremia with a normal chest x-ray. He was discharged on 2 weeks of Levaquin. He was doing fairly well until 2 days ago, when he had the onset of increased shortness of breath, as well a s cough. He has had minimal sputum production. Upon admission, he had a respiratory panel that was positive for RSV. His oxygen saturations have been okay on fairly low-flow oxygen. He reports that he is having cough that bothers him somewhat, but he is not really having any significant sputum. Th e cough is at times quite severe, and somewhat distressing to the patient when he has severe spasms. PAST MEDICAL HISTORY: 1. History of congenital hydrocephalus, status post CHURCH HISTORY TEACHER shunt. 2. Paraplegia, apparently in the thoracic region, due to an injury approximately 10 years ago. He h as decreased truncal support. 3. Hyperlipidemia. 4. Neuropathy. 5. Diastolic heart failure. 6. GERD. 7. Depression. 8. Chronic urinary retention. MEDICATIONS: At the time of admission include Reglan, Neurontin, baclofen, Ditropan, metoprolol, fur osemide, atorvastatin, tamsulosin, potassium, guaifenesin and Tessalon Perles. ALLERGIES: None. 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 He uses a powered whe elchair. Does not drink or smoke. FAMILY HISTORY: Unremarkable. REVIEW OF SYSTEMS: A 10-point review of systems adds nothing to the history of present illness. PHYSICAL EXAMINATION: GENERAL: The patient is awake and alert. He is in no acute distress. He has episodes of cough with deep inspiration. VITAL SIGNS: Blood pressure is 104/70, with a heart rate of 76. He is afebrile. Oxygen saturations are 91% on 4 L. HEENT: Normocephalic and atraumatic. N o icterus. NECK: No adenopathy. Trachea is midline. CHEST: He has some crackles in the bases. H e does have abdominal musculature contractions with cough. ABDOMEN: Soft, nontender. Bowel sounds are present. EXTREMITIES: No clubbing, cyanosis, or edema. NEURO: The patient is awake and alert. He has motor weakness in the lower extremities. LABORATORY: A CBC is normal, as is a chemistry group. D-dimer is 1.07. A CT scan of the chest show s some mild basilar atelectasis. No pulmonary embolism. A respiratory panel was positive for RSV. ASSESSMENT: 1. Respiratory syncytial virus, bronchitis. The patient has mild hypoxemia with this, it is correct ed with supplemental oxygen. 2. Cough. This is likely due to the respiratory syncytial virus. He has spasms with a pretty signi ficant cough. He denies having any significant secretions that are causing him difficulties. It raimundo ears that he has abdominal musculature strength to assist with cough, and therefore does not need ass istance with "quad cough.". 3. Continue guaifenesin and Tessalon. Oxycodone can also be beneficial to help with the cough. A s hort course of steroids is also reasonable. RECOMMENDATIONS: 1. Continue current therapies of antitussives and prednisone, as well as supplemental oxygen. 2. Await results of blood cultures to confirm that Klebsiella bacteremia has resolved. Hold antibio tics in the meantime. /[id number]/MODL
[2017-04-18] MEDS: METOCLOPRAMIDE 5 MG TAB PO SCH ×4 (05:42→21:53)
[2017-04-18] MEDS: OXYBUTYNIN 5 MG EXT REL TAB PO SCH (05:42)
[2017-04-18 05:48] LABS: % IMMATURE GRANULYOCYTES 0.4 % (0.0-1.1); ABSOLUTE IMMATURE GRANULOCYTES 0.04 10^3/uL (0.00-0.10); ADD DIFF? NO; ADD MORPH? NO; ADD SCAN? NO; ATYPICAL LYMPHOCYTE FLAG 10 (0-99); FRAGMENT RBC FLAG 0 (0-99); HEMATOCRIT 39.1 % (40.0-51.0); LEFT SHIFT FLG 0 (0-99); LIPEMIA HEMOLYSIS FLAG 80 (0-99); MEAN CELL HEMOGLOBIN 29.1 pg (27.9-34.1); MEAN CELL HEMOGLOBIN CONCENTR. 33.2 g/dL (32.4-36.7); MEAN CELL VOLUME 87.5 fL (81.5-99.8); MEAN PLATELET VOLUME 9.9 fL (8.7-11.7); PLATELET CLUMPS FLAG 0 (0-99); PLATELET COUNT 218 10^3/uL (150-400); RED BLOOD CELL COUNT 4.47 10^6/uL (4.40-6.38); RED CELL DISTRIBUTION WIDTH 14.4 % (11.5-15.2)
[2017-04-18] MEDS: IPRATROPIUM/ALBUTEROL 3 ML DEYVIAL IH SCH ×4 (06:00→21:23)
[2017-04-18 06:08] LABS: ANION GAP 6 mEq/L (8-16); CALCIUM 9.2 mg/dL (8.5-10.4); CARBON DIOXIDE 30 mEq/l (22-31); CHLORIDE 100 mEq/L (97-110); CREATININE 0.9 mg/dL (0.7-1.3); GLOMERULAR FILTRATION RATE > 60; GLUCOSE 124 mg/dL (70-100); POTASSIUM 3.9 mEq/L (3.5-5.2); SODIUM 136 mEq/L (134-144)
--- NOTE | 2017-04-18 08:35 | HOSPPROG ---
Hospitalist Progress Note Assessment/Plan: # acute hypoxic resp failure d/t RSV - cont steroids, pulm hygiene, BDs - ok for med surg today # RSV infection - supportive care # possible underlying bacterial pna - seems overall more c/w viral - stop levaquin today # urinary retention (900cc from straight cath) - suspect this is quite chronic and neurogenic - has condom cath, cont flomax - will recheck bladder volume this am, may need repeat straight cath vs gonzalez - needs urology f/u # hx congenital hydrocephalus s/p RETAIL CUSTOMER SERVICE SPECIALIST shunt # neurologic compromise with urinary retention, weak bilat LE, weak LLE - at risk for pressure injuries - baclofen # hyperNa - resolved # hypotension - primarily when sleeping - hold metop # lovenox Subjective: required straight cath, 900cc out Objective: Vital Signs Temp Pulse Resp BP Pulse Ox 36.9 C 52 L 20 104/53 L 92 04/18/17 07:52 04/18/17 07:52 04/18/17 07:52 04/18/17 07:52 04/18/17 07:52 Laboratory Results 04/18/17 05:28 04/18/17 05:28 04/17/17 04/18/17 04/19/17 05:59 05:59 05:59 Intake Total 1325 2175 Output Total 1450 100 900 Balance -125 2075 -900 PT 13.0 SEC (12.0-15.0) 04/16/17 09:15 INR 0.96 (0.83-1.16) 04/16/17 09:15 - Physical Exam Constitutional: no apparent distress, appears nourished Cardiovascular: regular rate and rhythym, no murmur, rub, or gallop Respiratory: no respiratory distress, inspiratory crackles, rhonchi (mild), No expiratory wheeze, No bronchial breath sounds, No dullness to percussion Gastrointestinal: normoactive bowel sounds, soft, non-tender abdomen, no palpable masses ICD10 Worksheet Patient Problems: Problems Problem Status Onset Hypoxia Acute Sepsis Acute Pneumonia Acute
[2017-04-18] MEDS: ATORVASTATIN CALCIUM 20 MG TAB PO SCH (09:09)
[2017-04-18] MEDS: predniSONE 20 MG TAB PO SCH (09:09)
[2017-04-18] MEDS: ENOXAPARIN 40 MG/0.4 ML SYR SC SCH (09:10)
[2017-04-18] MEDS: TAMSULOSIN HCL 0.4 MG CAP PO SCH (09:10)
[2017-04-18] MEDS: GABAPENTIN 300 MG CAP PO SCH ×2 (09:10→21:01)
[2017-04-18] MEDS: BACLOFEN 20 MG TAB PO SCH ×2 (09:10→21:01)
[2017-04-18] MEDS: guaiFENesin 600 MG TAB.ER PO SCH ×2 (09:10→21:01)
--- NOTE | 2017-04-18 13:03 | ASMTCMCOM ---
CM Note CM Note Notes: 56 year old male admitted for hypoxemia, PNA. He has a hx of Hydrocephalus as an and MARKETING PROPOSAL SPECIALIST shunt. For the last 10 years has been losing function in his arms, legs, trunk and has a REFRIGERATION SYSTEM INSTALLER to assist him during the day and no assist at night. Patient was recently at [facility] for PNA. He also has a hx ofneuropathy, CHF, urinary retention, GERD, CAD, Depression, neck and spinal surgery-chronic pain. CM to follow for discharge needs. Date Signed: 04/18/2017 01:03 PM Electronically Signed By:Madison Downs LCSW
[2017-04-18] MEDS ORDERED: LIDOCAINE 2% JELLY 20 ML (UROJECT) UR ONE (16:00)
[2017-04-18] MEDS ORDERED: LIDOCAINE 2% JELLY 20 ML (UROJECT) UR PRN (16:27)
[2017-04-18] MEDS: POLYETHYLENE GLYCOL 3350 17 GM PKT PO SCH (16:30)
[2017-04-19] MEDS: IPRATROPIUM/ALBUTEROL 3 ML DEYVIAL IH SCH ×5 (05:46→21:51)
[2017-04-19] MEDS: OXYBUTYNIN 5 MG EXT REL TAB PO SCH (06:43)
[2017-04-19] MEDS: METOCLOPRAMIDE 5 MG TAB PO SCH ×4 (06:43→21:26)
[2017-04-19] MEDS: predniSONE 20 MG TAB PO SCH (09:36)
[2017-04-19] MEDS: ENOXAPARIN 40 MG/0.4 ML SYR SC SCH (09:36)
[2017-04-19] MEDS: guaiFENesin 600 MG TAB.ER PO SCH ×2 (09:36→21:25)
[2017-04-19] MEDS: ATORVASTATIN CALCIUM 20 MG TAB PO SCH (09:36)
[2017-04-19] MEDS: TAMSULOSIN HCL 0.4 MG CAP PO SCH (09:36)
[2017-04-19] MEDS: BACLOFEN 20 MG TAB PO SCH ×2 (09:36→21:25)
[2017-04-19] MEDS: GABAPENTIN 300 MG CAP PO SCH ×2 (09:36→21:29)
[2017-04-19] MEDS: POLYETHYLENE GLYCOL 3350 17 GM PKT PO SCH (09:36)
[2017-04-19] MEDS ORDERED: ACETYLCYSTEINE 20% IH/PO 4 ML VIAL IH ONE (10:43)
--- NOTE | 2017-04-19 10:50 | HOSPPROG ---
Hospitalist Progress Note Assessment/Plan: # acute hypoxic resp failure d/t RSV - cont steroids, pulm hygiene, BDs - add mucomyst today # RSV infection - supportive care # possible underlying bacterial pna - seems overall more c/w viral - monitoring off abx # urinary retention (900cc from straight cath) - suspect this is quite chronic and neurogenic - has condom cath, cont flomax - currently voiding spontaneously; # hx congenital hydrocephalus s/p TIMBER CRUISER shunt # neurologic compromise with urinary retention, weak bilat LE, weak LLE - at risk for pressure injuries - baclofen # hyperNa - resolved # hypotension - primarily when sleeping - hold metop # lovenox Subjective: breathing feels better overall today; unable to fully mobilize sputum; voided 600cc today Objective: Vital Signs Temp Pulse Resp BP Pulse Ox 36.7 C 92 16 110/59 L 91 L 04/19/17 07:25 04/19/17 07:25 04/19/17 07:25 04/19/17 07:25 04/19/17 07:25 Laboratory Results 04/18/17 05:28 04/18/17 05:28 04/18/17 04/19/17 04/20/17 05:59 05:59 05:59 Intake Total 2175 570 Output Total 100 2049 600 Balance 2074 PT 13.0 SEC (12.0-15.0) 04/16/17 09:15 INR 0.96 (0.83-1.16) 04/16/17 09:15 - Physical Exam Constitutional: chronically ill appearing Cardiovascular: regular rate and rhythym, no murmur, rub, or gallop Respiratory: no respiratory distress, expiratory wheeze, inspiratory crackles, No reduced air movement Gastrointestinal: normoactive bowel sounds, soft, non-tender abdomen, no palpable masses ICD10 Worksheet Patient Problems: Problems Problem Status Onset Hypoxia Acute Sepsis Acute Pneumonia Acute
[2017-04-20 05:13] LABS: ABSOLUTE IMMATURE GRANULOCYTES 0.09 10^3/uL (0.00-0.10); ADD DIFF? NO; ADD MORPH? NO; ADD SCAN? NO; ATYPICAL LYMPHOCYTE FLAG 10 (0-99); FRAGMENT RBC FLAG 0 (0-99); HEMATOCRIT 39.4 % (40.0-51.0); HEMOGLOBIN 13.2 g/dL (13.7-17.5); LEFT SHIFT FLG 0 (0-99); LIPEMIA HEMOLYSIS FLAG 80 (0-99); MEAN CELL HEMOGLOBIN 29.1 pg (27.9-34.1); MEAN CELL HEMOGLOBIN CONCENTR. 33.5 g/dL (32.4-36.7); MEAN PLATELET VOLUME 10.1 fL (8.7-11.7); PLATELET CLUMPS FLAG 0 (0-99); PLATELET COUNT 251 10^3/uL (150-400); RED BLOOD CELL COUNT 4.53 10^6/uL (4.40-6.38); RED CELL DISTRIBUTION WIDTH 14.3 % (11.5-15.2)
[2017-04-20 05:31] LABS: ANION GAP 9 mEq/L (8-16); CALCIUM 9.3 mg/dL (8.5-10.4); CARBON DIOXIDE 30 mEq/l (22-31); CHLORIDE 99 mEq/L (97-110); CREATININE 0.8 mg/dL (0.7-1.3); GLOMERULAR FILTRATION RATE > 60; GLUCOSE 147 mg/dL (70-100); POTASSIUM 4.4 mEq/L (3.5-5.2); SODIUM 138 mEq/L (134-144)
[2017-04-20] MEDS: IPRATROPIUM/ALBUTEROL 3 ML DEYVIAL IH SCH ×4 (05:34→20:18)
[2017-04-20] MEDS: METOCLOPRAMIDE 5 MG TAB PO SCH ×4 (05:42→21:18)
[2017-04-20] MEDS: OXYBUTYNIN 5 MG EXT REL TAB PO SCH (05:42)
[2017-04-20] MEDS: guaiFENesin 600 MG TAB.ER PO SCH ×2 (08:28→21:18)
[2017-04-20] MEDS: ATORVASTATIN CALCIUM 20 MG TAB PO SCH (08:28)
[2017-04-20] MEDS: TAMSULOSIN HCL 0.4 MG CAP PO SCH (08:28)
[2017-04-20] MEDS: BACLOFEN 20 MG TAB PO SCH ×2 (08:28→21:18)
[2017-04-20] MEDS: predniSONE 20 MG TAB PO SCH (08:28)
[2017-04-20] MEDS: POLYETHYLENE GLYCOL 3350 17 GM PKT PO SCH (08:29)
[2017-04-20] MEDS: ENOXAPARIN 40 MG/0.4 ML SYR SC SCH (08:29)
[2017-04-20] MEDS: GABAPENTIN 300 MG CAP PO SCH ×2 (08:29→21:18)
[2017-04-20] MEDS ORDERED: LACTULOSE 20 GM/30 ML UDCUP PO PRN (08:45)
[2017-04-20] MEDS ORDERED: MAGNESIUM HYDROXIDE 30 ML UDCUP PO PRN (08:45)
[2017-04-20] MEDS ORDERED: BISACODYL 10 MG SUPP PR PRN (08:45)
--- NOTE | 2017-04-20 08:51 | HOSPPROG ---
Hospitalist Progress Note Assessment/Plan: 56M, debilitated and dependent on ADLs, presents with resp failure d/t RSV. # acute hypoxic resp failure d/t RSV - overall slow improvement - cont steroids, pulm hygiene, BDs - cont mucomyst daily # RSV infection - supportive care # possible underlying bacterial pna - seems overall more c/w viral - monitoring off abx # urinary retention (900cc from straight cath) - suspect this is quite chronic and neurogenic - has condom cath, cont flomax - currently voiding spontaneously # constipation - increase bowel regimen today # hx congenital hydrocephalus s/p CIVIL RIGHTS REPRESENTATIVE shunt # neurologic compromise with urinary retention, weak bilat LE, weak LLE - at risk for pressure injuries - baclofen # hyperNa - resolved # hypotension - primarily when sleeping - hold metop # lovenox # dispo - probably needs 1-2 more days; lived at home with 12 hr caregiver since October, had resided at [facility] prior to this - will probably need SNF; should get neurology and urology referrals on dc Subjective: had good expectoration after mucomyst Objective: Vital Signs Temp Pulse Resp BP Pulse Ox 36.8 C 81 16 99/62 L 95 04/20/17 08:00 04/20/17 08:00 04/20/17 08:00 04/20/17 08:00 04/20/17 08:00 Laboratory Results 04/20/17 04:20 04/20/17 04:20 04/19/17 04/20/17 04/21/17 05:59 05:59 05:59 Intake Total 1170 Output Total 2049 270 Balance -2049 -153 PT 13.0 SEC (12.0-15.0) 04/16/17 09:15 INR 0.96 (0.83-1.16) 04/16/17 09:15 - Physical Exam Constitutional: no apparent distress, appears nourished Cardiovascular: regular rate and rhythym, no murmur, rub, or gallop Respiratory: no respiratory distress, no rales or rhonchi, clear to auscultation Gastrointestinal: normoactive bowel sounds, soft, non-tender abdomen, distension (mild), No guarding, No rebound ICD10 Worksheet Patient Problems: Problems Problem Status Onset Hypoxia Acute Sepsis Acute Pneumonia Acute
[2017-04-20] MEDS: ACETYLCYSTEINE 20% IH/PO 4 ML VIAL IH SCH ×2 (09:17→10:47)
[2017-04-20] MEDS: SENNOSIDES/DOCUSATE SODIUM TAB PO SCH ×2 (10:02→21:18)
--- NOTE | 2017-04-20 16:30 | ASMTCMCOM ---
CM Note CM Note Notes: Spoke with pt re; SNF. Pt lives alone but has a caregiver 12hrs/day. Needs SNF, would like to go to [facility], CM faxed referral. DC Plan: [facility] Date Signed: 04/20/2017 04:30 PM Electronically Signed By:Brandy Fischer RN
--- NOTE | 2017-04-20 16:45 | ASMTCMCOM ---
CM Note CM Note Notes: Pt requests that I call Dina at [facility] [phone], to bring his wheel chair to [facility]. CM called and left a message. Date Signed: 04/20/2017 04:44 PM Electronically Signed By:Brandy Fischer RN
[2017-04-21] MEDS: ACETYLCYSTEINE 20% IH/PO 4 ML VIAL IH SCH (05:43)
[2017-04-21] MEDS: IPRATROPIUM/ALBUTEROL 3 ML DEYVIAL IH SCH ×4 (05:43→20:06)
[2017-04-21] MEDS: OXYBUTYNIN 5 MG EXT REL TAB PO SCH (06:07)
[2017-04-21] MEDS: METOCLOPRAMIDE 5 MG TAB PO SCH ×4 (06:07→21:31)
[2017-04-21] MEDS: BACLOFEN 20 MG TAB PO SCH ×2 (09:40→21:31)
[2017-04-21] MEDS: POLYETHYLENE GLYCOL 3350 17 GM PKT PO SCH (09:40)
[2017-04-21] MEDS: predniSONE 20 MG TAB PO SCH (09:40)
[2017-04-21] MEDS: TAMSULOSIN HCL 0.4 MG CAP PO SCH (09:40)
[2017-04-21] MEDS: guaiFENesin 600 MG TAB.ER PO SCH ×2 (09:40→21:31)
[2017-04-21] MEDS: ENOXAPARIN 40 MG/0.4 ML SYR SC SCH (09:40)
[2017-04-21] MEDS: ATORVASTATIN CALCIUM 20 MG TAB PO SCH (09:41)
[2017-04-21] MEDS: GABAPENTIN 300 MG CAP PO SCH ×2 (09:41→21:31)
[2017-04-21] MEDS: SENNOSIDES/DOCUSATE SODIUM TAB PO SCH ×2 (09:41→21:31)
--- NOTE | 2017-04-21 13:28 | HOSPPROG ---
Hospitalist Progress Note Assessment/Plan: 56M, debilitated and dependent on ADLs, presents with resp failure d/t RSV. acute hypoxic resp failure d/t RSV - overall slow improvement - cont steroids, pulm hygiene, BDs - cont mucomyst daily RSV infection - supportive care possible underlying bacterial pna - seems overall more c/w viral - monitoring off abx imaging w no infiltrate urinary retention (900cc from straight cath) - suspect this is quite chronic and neurogenic - has condom cath, cont flomax - currently voiding spontaneously constipation - increase bowel regimen today hx congenital hydrocephalus s/p GERIATRIC NURSE shunt neurologic compromise with urinary retention, weak bilat LE, weak LLE - at risk for pressure injuries - baclofen hyperNa - resolved hypotension - primarily when sleeping - hold metop lovenox dispo - probably needs 1-2 more days; lived at home with 12 hr caregiver since October, had resided at [facility] prior to this - will probably need SNF; should get neurology and urology referrals on dc Subjective: admit cxr and CT w no pulm infiltrate (interp by me). notes difficulty w urination Objective: Vital Signs Temp Pulse Resp BP Pulse Ox 36.9 C 102 H 20 110/71 90 L 04/21/17 11:54 04/21/17 11:54 04/21/17 11:54 04/21/17 11:54 04/21/17 11:54 Laboratory Results 04/20/17 04:20 04/20/17 04:20 04/20/17 04/21/17 04/22/17 05:59 05:59 05:59 Intake Total 1170 236 Output Total 2700 450 Balance -1530 -214 PT 13.0 SEC (12.0-15.0) 04/16/17 09:15 INR 0.96 (0.83-1.16) 04/16/17 09:15 - Physical Exam Constitutional: no apparent distress, appears nourished Eyes: PERRL, anicteric sclera Ears, Nose, Mouth, Throat: moist mucous membranes, hearing normal Cardiovascular: regular rate and rhythym, no murmur, rub, or gallop Respiratory: no respiratory distress, no rales or rhonchi Gastrointestinal: normoactive bowel sounds, soft, non-tender abdomen Genitourinary: no bladder fullness Skin: warm, normal color Musculoskeletal: full muscle strength Neurologic: AAOx3 ICD10 Worksheet Patient Problems: Problems Problem Status Onset Hypoxia Acute Pneumonia Acute Sepsis Acute
--- NOTE | 2017-04-21 16:05 | ASMTCMCOM ---
CM Note CM Note Notes: Completed Pt's non triggering PASRR today. Met w/ Pt. Pt. denies any current depression. Faxed PASRR to [facility] through [employer]. D/c plan: [facility] SNF Date Signed: 04/21/2017 04:04 PM Electronically Signed By:Ava Lindsey LCSW
[2017-04-22] MEDS: OXYBUTYNIN 5 MG EXT REL TAB PO SCH (05:08)
[2017-04-22] MEDS: METOCLOPRAMIDE 5 MG TAB PO SCH ×3 (05:08→17:08)
[2017-04-22] MEDS: IPRATROPIUM/ALBUTEROL 3 ML DEYVIAL IH SCH ×3 (05:49→16:11)
[2017-04-22] MEDS: ACETYLCYSTEINE 20% IH/PO 4 ML VIAL IH SCH (05:49)
[2017-04-22] MEDS: BACLOFEN 20 MG TAB PO SCH (08:11)
[2017-04-22] MEDS: ENOXAPARIN 40 MG/0.4 ML SYR SC SCH (08:11)
[2017-04-22] MEDS: predniSONE 20 MG TAB PO SCH (08:11)
[2017-04-22] MEDS: POLYETHYLENE GLYCOL 3350 17 GM PKT PO SCH (08:11)
[2017-04-22] MEDS: TAMSULOSIN HCL 0.4 MG CAP PO SCH (08:11)
[2017-04-22] MEDS: GABAPENTIN 300 MG CAP PO SCH (08:12)
[2017-04-22] MEDS: SENNOSIDES/DOCUSATE SODIUM TAB PO SCH (08:12)
[2017-04-22] MEDS: guaiFENesin 600 MG TAB.ER PO SCH (08:12)
[2017-04-22] MEDS: ATORVASTATIN CALCIUM 20 MG TAB PO SCH (08:12)
--- NOTE | 2017-04-22 15:11 | HOSPPROG ---
Hospitalist Progress Note Assessment/Plan: 56M, debilitated and dependent on ADLs, presents with resp failure d/t RSV. acute hypoxic resp failure d/t RSV - overall slow improvement - cont steroids, pulm hygiene, BDs - cont mucomyst daily RSV infection - supportive care possible underlying bacterial pna - seems overall more c/w viral - monitoring off abx imaging w no infiltrate urinary retention (900cc from straight cath) - suspect this is quite chronic and neurogenic - has condom cath, cont flomax - currently voiding spontaneously these are new complaints rec 2 week trial of flomax w urology referral if no improvement discussed w pt constipation - increase bowel regimen today hx congenital hydrocephalus s/p FIRE CLAIMS ADJUSTER shunt neurologic compromise with urinary retention, weak bilat LE, weak LLE - at risk for pressure injuries - baclofen hyperNa - resolved hypotension - primarily when sleeping - hold metop lovenox dispo -to [facility] today > 30 minutes Subjective: ready for dc to [facility] Objective: Vital Signs Temp Pulse Resp BP Pulse Ox 37.1 C 100 16 110/68 95 04/22/17 11:08 04/22/17 11:08 04/22/17 11:08 04/22/17 11:08 04/22/17 11:08 Laboratory Results 04/20/17 04:20 04/20/17 04:20 04/21/17 04/22/17 04/23/17 05:59 05:59 05:59 Intake Total 236 1355 Output Total 450 1000 Balance -214 355 PT 13.0 SEC (12.0-15.0) 04/16/17 09:15 INR 0.96 (0.83-1.16) 04/16/17 09:15 - Physical Exam Constitutional: no apparent distress, appears nourished Eyes: PERRL, anicteric sclera Ears, Nose, Mouth, Throat: moist mucous membranes, hearing normal, No oral thrush Cardiovascular: regular rate and rhythym, no murmur, rub, or gallop Respiratory: no respiratory distress, no rales or rhonchi Gastrointestinal: normoactive bowel sounds, soft, non-tender abdomen Genitourinary: no bladder fullness, No gonzalez in urethra Skin: warm, normal color ICD10 Worksheet Patient Problems: Problems Problem Status Onset Hypoxia Acute Pneumonia Acute Sepsis Acute
--- NOTE | 2017-04-22 15:17 | PDIAF ---
- Diagnosis Diagnosis: RSV w hypoxemic resp faiure Code Status: Full Code - Medication Management Discharge Medications: Medications to Continue on Transfer Baclofen [Baclofen 20 mg (*)] 20 mg PO BID 03/24/12 [Last Taken 04/15/17] Gabapentin [Neurontin 300 MG (*)] 300 mg PO BID 03/24/12 [Last Taken 04/15/17] Metoclopramide [Reglan 5 mg (*)] 5 mg PO QID 03/24/12 [Last Taken 03/26/16 07:00 ] Atorvastatin Calcium [Lipitor 20 mg (*)] 20 mg PO DAILY 03/19/17 [Last Taken 12/23] Furosemide [Lasix 80 MG (*)] 80 mg PO DAILY 03/19/17 [Last Taken 04/15/17] Metoprolol Succinate Xr [Toprol Xl 25 mg (*)] 25 mg PO DAILY 03/19/17 [Last Taken 04/15/17] Benzonatate [Tessalon Pearles] 200 mg PO TID PRN 04/16/17 [Last Taken Unknown] Potassium Chloride [Klor-Con M20] 40 meq PO BID 04/16/17 [Last Taken 04/15/17] Tamsulosin HCl [Flomax 0.4 MG (*)] 0.4 mg PO DAILY 04/16/17 [Last Taken 04/15/17 ] guaiFENesin [Mucinex] 1,200 mg PO BID 04/16/17 [Last Taken Unknown] Polyethylene Glycol 3350 [Miralax 17 gm (*)] 17 gm PO BID 04/18/17 [Last Taken Unknown] Acetylcysteine 20% Ih/Po 2 ml IH DAILY06 vial 04/22/17 [Last Taken Unknown] Ipratropium/Albuterol [Duoneb (*)] 3 ml IH QID deyvial 04/22/17 [Last Taken Unknown] Discharge Medications: Refer to the Discharge Home Medication list for PRN reason. - Orders Services needed: Registered Nurse, Physical Therapy, Occupational Therapy, Speech Language Pathologist Isolation Type: Contact Isolation, Droplet Isolation - Labs/Radiology Imaging Orders: he has a follow up w dr shaun hernandez at 3 pm - Follow Up Care Current Providers and Referrals: Patient,NotPresent [Unknown] - As per Instructions Shaun Hooks MD [Medical Doctor] -
--- NOTE | 2017-04-22 16:02 | GDS ---
[f rep st] DISCHARGE SUMMARY DISCHARGE DIAGNOSES: 1. Acute hypoxemic respiratory failure secondary to respiratory syncytial virus. 2. Congenital hydrocephalus with neurologic morbidity. 3. Urinary retention felt secondary to Ditropan. 4. Paraplegia. HISTORY OF PRESENT ILLNESS: The patient is admitted with difficulty breathing. He was found to be h ypoxemic. Pulmonary evaluation from an imaging standpoint showed no pulmonary emboli or atelectasis. He had an oxygen requirement. Micro came back positive for respiratory syncytial virus. He was tr eated symptomatically with improvement. He was started on Flomax. The patient had some neurological decline, so an outpatient neurologic appointment was made for him with Dr. Shaun Hooks. This raimundo ointment is on his discharge paper work. The patient has fairly significant urinary retention. He h ad 900 cc. Garibay was never replaced. He started on Flomax and Ditropan was discontinued. He is adv ised to give the Flomax 2 weeks, and if that does not improve, we recommend [facility] followup. He has not seen them yet. Discharge status is to [facility]. /[id number]/MODL
[2017-04-22 16:09] VITALS: BP 131/83; TEMP 98.2; O2SAT 92
[2017-04-22 16:30] VITALS: PULSE 97; RESP 14
== END 2017-04-22 19:07 | DRG 202 ==
LOC: EDUNIT# → F1N 11:57 → F2N 15:32 → F3E 04-18 13:50
PROVIDERS: ADMIT Internal Medicine; ATTEND Internal Medicine
DX: J20.5 Acute bronchitis due to respiratory syncytial virus (principal); J96.21 Acute and chronic respiratory failure with hypoxia; E87.1 Hypo-osmolality and hyponatremia; R33.0 Drug induced retention of urine; T44.3X5A Adverse effect of other parasympatholytics [anticholinergics and antimuscarinics] and spasmolytics, initial encounter; Q03.9 Congenital hydrocephalus, unspecified; Z98.2 Presence of cerebrospinal fluid drainage device; G82.20 Paraplegia, unspecified; I50.32 Chronic diastolic (congestive) heart failure; K21.9 Gastro-esophageal reflux disease without esophagitis; E78.5 Hyperlipidemia, unspecified
CPT/HCPCS: 96365; J0692; J1650; J1956; J7608; Q9967

== ENCOUNTER 2017-06-04 10:39 | Emergency (ER) | payer OTHER, MEDICAID ==
--- NOTE | 2017-06-04 10:52 | EDPHY ---
H & P Time Seen by Provider: 06/04/17 10:42 HPI/ROS: CHIEF COMPLAINT: Headache and vomiting HISTORY OF PRESENT ILLNESS: The patient is brought in by paramedics with a reported history of headache and vomiting. 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 The patient was hospitalized in the middle April with hypoxemic respiratory failure secondary to an RSV infection. The patient had been discharged to [facility] and subsequently was discharged home. The patient reportedly has a home healthcare nurse who does daily visits. She is the one who contacted paramedics today. In the ED, the patient tells me he is having a generalized 5/10 headache. He reports he does get intermittent headaches. He did experience a headache yesterday. This one is more protracted in his typical events. The patient does report a chronic cough. He denies fever. He denies any acute numbness or weakness. REVIEW OF SYSTEMS: A comprehensive 10 point review of systems is otherwise negative aside from elements mentioned in the history of present illness. Source: Patient Exam Limitations: No limitations - Personal History Tetanus Vaccine Date: UNKNOWN - Medical/Surgical History Hx Asthma: No Hx Chronic Respiratory Disease: No Hx Diabetes: No Hx Cardiac Disease: No Hx Renal Disease: No Hx Cirrhosis: No Hx Alcoholism: No Hx HIV/AIDS: No Hx Splenectomy or Spleen Trauma: No Other PMH: PMH: Hyperlipidemia, Constipation, Muscle Spasms, Edema, HTN, GERD, NEUROMUSCULAR DYSFUNCTION OF BLADDER, MUSCLE WEAKNESS, HYDROCEPHALUS, SPINAL STENOSIS, NEUROPATHY. - Social History Smoking Status: Never smoked - Physical Exam Exam: General Appearance: Deconditioned male, no acute distress Head: Normocephalic, atraumatic, palpable shot without evidence of erythema or fluctuance Eyes: Pupils equal and round no pallor or injection ENT, Mouth: Mucous membranes moist Respiratory: There are no retractions, lungs are clear to auscultation Cardiovascular: Regular rate and rhythm Gastrointestinal: Abdomen is soft and nontender, no masses, bowel sounds normal , chronic Garibay catheter Neurological: A&O, normal motor function, normal sensory exam, normal cranial nerves Skin: Warm and dry, no rashes Musculoskeletal: Neck is supple nontender Extremities: symmetrical, full range of motion Constitutional: Initial Vital Signs Temperature (C) 37 C 06/04/17 10:40 Heart Rate 85 06/04/17 10:40 Respiratory Rate 18 06/04/17 10:40 Blood Pressure 120/80 06/04/17 10:40 O2 Sat (%) 93 06/04/17 10:40 O2 Delivery Mode Nasal Cannula O2 (L/minute) 3 Allergies/Adverse Reactions: No Allergies [NKDA] Allergy (Verified 04/16/17 09:20) Home Medications: Medication Instructions Recorded Baclofen [Baclofen 20 mg (*)] 20 mg PO BID 03/24/12 Gabapentin [Neurontin 300 MG (*)] 300 mg PO BID 03/24/12 Metoclopramide [Reglan 5 mg (*)] 5 mg PO QID 03/24/12 Atorvastatin Calcium [Lipitor 20 20 mg PO DAILY 03/19/17 mg (*)] Furosemide [Lasix 80 MG (*)] 80 mg PO DAILY 03/19/17 Metoprolol Succinate Xr [Toprol Xl 25 mg PO DAILY 03/19/17 25 mg (*)] Benzonatate [Tessalon Pearles] 200 mg PO TID PRN 04/16/17 Potassium Chloride [Klor-Con M20] 40 meq PO BID 04/16/17 Tamsulosin HCl [Flomax 0.4 MG (*)] 0.4 mg PO DAILY 04/16/17 guaiFENesin [Mucinex] 1,200 mg PO BID 04/16/17 Polyethylene Glycol 3350 [Miralax 17 gm PO BID 04/18/17 17 gm (*)] Ditropan 06/04/17 Dulcolax 06/04/17 Milk of Magnesia 06/04/17 Medical Decision Making - Diagnostics Imaging Results: Imaging Impressions Head CT 06/04/17 10:43 Impression: 1. No acute intracranial findings. 2. Stable shunt positioning and ventriculomegaly. 3. 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 Findings discussed with Fernando Fields on 06/04/2017 at 11:26 a.m. Chest X-Ray 06/04/17 10:44 Impression: Hypoventilatory chest with basilar atelectasis. ED Course/Re-evaluation: The patient presents to the ED for evaluation of a headache. He is afebrile and has no meningeal symptoms. The patient is noted to be at his neurologic baseline. The patient had a CT scan of his brain which demonstrates no evidence of worsening hydrocephalus. He has no clinical evidence of a shunt infection. The patient had an IV established. He received IV Toradol and Zofran. He did have an episode of vomiting and does have a chronic cough. Chest x-ray demonstrates no evidence of a focal pneumonia. I re-evaluated the patient at 12:10 p.m. he is feeling better would like to be discharged home. The patient does have some degree of home care. Our correctional counselor/case manager is contacting his home service to ensure they are comfortable with his discharge to home. Differential Diagnosis: Differential diagnosis considered includes - Data Points Laboratory Results: Laboratory Results 06/04/17 10:50 06/04/17 10:50 06/04/17 06/04/17 10:50 10:50 WBC 7.92 10^3/uL 10^3/uL (3.80-9.50) RBC 5.18 10^6/uL 10^6/uL (4.40-6.38) Hgb 15.3 g/dL g/dL (13.7-17.5) Hct 46.2 % % (40.0-51.0) MCV 89.2 fL fL (81.5-99.8) MCH 29.5 pg pg (27.9-34.1) MCHC 33.1 g/dL g/dL (32.4-36.7) RDW 14.4 % % (11.5-15.2) Plt Count 239 10^3/uL 10^3/uL (150-400) MPV 9.7 fL fL (8.7-11.7) Neut % (Auto) 68.6 % % (39.3-74.2) Lymph % (Auto) 21.2 % % (15.0-45.0) Taney % (Auto) 7.1 % % (4.5-13.0) Eos % (Auto) 2.1 % % (0.6-7.6) Baso % (Auto) 0.6 % % (0.3-1.7) Nucleat RBC Rel Count 0.0 % % (0.0-0.2) Absolute Neuts (auto) 5.43 10^3/uL 10^3/uL (1.70-6.50) Absolute Lymphs (auto) 1.68 10^3/uL 10^3/uL (1.00-3.00) Absolute Monos (auto) 0.56 10^3/uL 10^3/uL (0.30-0.80) Absolute Eos (auto) 0.17 10^3/uL 10^3/uL (0.03-0.40) Absolute Basos (auto) 0.05 10^3/uL 10^3/uL (0.02-0.10) Absolute Nucleated RBC 0.00 10^3/uL 10^3/uL (0-0.01) Immature Gran % 0.4 % % (0.0-1.1) Immature Gran # 0.03 10^3/uL 10^3/uL (0.00-0.10) Sodium 147 mEq/L H mEq/L (135-145) Potassium 4.3 mEq/L mEq/L (3.5-5.2) Chloride 102 mEq/L mEq/L (97-110) Carbon Dioxide 32 mEq/l H mEq/l (22-31) Anion Gap 13 mEq/L mEq/L (8-16) BUN 13 mg/dL mg/dL (7-23) Creatinine 1.2 mg/dL mg/dL (0.7-1.3) Estimated GFR > 60 Glucose 107 mg/dL H mg/dL (70-100) Calcium 9.8 mg/dL mg/dL (8.5-10.4) Lipase 138 IU/L IU/L (23-300) Medications Given: Discontinued Medications Ketorolac Tromethamine (Toradol) 30 mg IVP EDNOW ONE Stop: 06/04/17 11:28 Last Admin: 06/04/17 11:35 Dose: 30 mg Ondansetron HCl (Zofran) 4 mg IVP EDNOW ONE Stop: 06/04/17 11:28 Last Admin: 06/04/17 11:35 Dose: 4 mg Departure - Departure Disposition: Home, Routine, Self-Care Clinical Impression: Headache, Hydrocephalus, Vomiting Condition: Good Instructions: Migraine Headache (ED) Additional Instructions: 1. Return to the ED for worsening vomiting, difficulty breathing, fever or worsening cough. 2. Return to the ED for severe headache, neck stiffness, acute numbness or weakness. 3. Please follow up with your regular physician as scheduled. Referrals: KAYLA,UNKNOWN [Other] - As per Instructions
[2017-06-04 11:07] LABS: PLATELET COUNT 239 10^3/uL (150-400)
[2017-06-04 11:25] VITALS: O2SAT 92
[2017-06-04] MEDS ORDERED: ONDANSETRON 4 MG/2 ML VIAL IVP ONE (11:27)
[2017-06-04] MEDS ORDERED: KETOROLAC 30 MG/1 ML SDV IVP ONE (11:27)
[2017-06-04 14:02] VITALS: BP 105/73; PULSE 76; RESP 20; TEMP 97.3
--- NOTE | 2017-06-04 14:26 | ASMTCMCOM ---
CM Note CM Note Notes: Pt brought into ED via EMS from his apartment, after his IT SECURITY PROJECT MANAGER with [facility] ([phone]) called 911 after pt reported headache & vomiting. Pt recently discharged from [facility] to [facility] 04/22/17 and was eventually discharged from to home with [facility]. Spoke with Dina at [facility] (c:[phone]), updated on pt's status and test results. Pt medically cleared and stable to discharge home, will require non-emergent stretcher transport due to quadriplegia and 2-person max assist. Pt's address confirmed: [address], [place]. Per EMS dispatch this address is not coming up on their maps system due to it being such a new apartment complex. Spoke with EMS on arrival to ED and explained patient's address and apartment building location, print out of map provided. EMS is aware they will need to help patient into his bed and that a [facility] IT SECURITY PROJECT MANAGER social group worker will arrive to further assist. PCS completed, copy provided to EMS, original placed in pt's chart. CM available for further assistance if needed. Date Signed: 06/04/2017 02:25 PM Electronically Signed By:Ava Quijano RN
--- NOTE | 2017-06-04 14:29 | ASDISCHSUM ---
Discharge Information Plan Status:Home with Home Health Medically Cleared to Leave: Discharge Date:06/04/2017 02:08 PM CM D/C Disposition:Home Health Service ADT D/C Disposition:Home, Routine, Self-Care Projected Discharge Date:06/04/2017 02:08 PM Transportation at D/C:ALS/BLS Discharge Delay Reason: Follow-Up Date:06/04/2017 02:08 PM Discharge Slot: Final Diagnosis: Placement Information Patient Contact Information Contact Name:NBA Relationship:Sister Address:[address] [place] [address] City:[place] Phone: State/Zip Code:[place] [address] Email: Financial Information Financial Class: Primary Plan Desc:MEDICARE OUTPATIENT Primary Plan Number:[id number] Secondary Plan Desc:MEDICAID HEALTH FIRST [place] OP Secondary Plan Number:[id number] Assessment Information [facility] CM Progress Note CM Note CM Note Notes: Pt brought into ED via EMS from his apartment, after his HOMEOPATHIC DOCTOR with [facility] ([phone]) called 911 after pt reported headache & vomiting. Pt recently discharged from [facility] to [facility] 04/22/17 and was eventually discharged from to home with [facility]. Spoke with Dina at [facility] (c:[phone]), updated on pt's status and test results. Pt medically cleared and stable to discharge home, will require non-emergent stretcher transport due to quadriplegia and 2-person max assist. Pt's address confirmed: [address]. Per EMS dispatch this address is not coming up on their maps system due to it being such a new apartment complex. Spoke with EMS on arrival to ED and explained patient's address and apartment building location, print out of map provided. EMS is aware they will need to help patient into his bed and that a [facility] HOMEOPATHIC DOCTOR car escort will arrive to further assist. PCS completed, copy provided to EMS, original placed in pt's chart. CM available for further assistance if needed. Date Signed: 06/04/2017 02:25 PM Electronically Signed By:Ava Quijano RN LACE LACE Acuity / Level of Answers: No Care: Did the patient have an inpatient admission? Comorbidities - select Answers: Other all that apply # of Emergency department Answers: 1-2 visits in the last 6 months Score: 2 Date Signed: 06/04/2017 02:26 PM Electronically Signed By:Ava Quijano RN Intervention Information Intervention Type:Transportation Date of Service:06/04/2017 02:27 PM Patient Type:Emergency Room Staff Member:CHRISTIANO Quijano, Ava Hours:0.5 Discipline:Sandwich Wrapper Severity: Comment:Multiple calls made to confirm patient 's address. PCS completed, copy provided to EMS, original placed in pt's chart.
== END 2017-06-04 14:08 | disposition home or self-care (01) ==
LOC: EDUNIT#
DX: G91.9 Hydrocephalus, unspecified (principal); I10 Essential (primary) hypertension
CPT/HCPCS: 70450; 71046; 96374; 96375; 99285; J1885; J2405

== ENCOUNTER → 2018-04-02 | Outpatient (CLI) | payer OTHER, MEDICAID | LOC: FCPNEURO 20:00 | PROVIDERS: ATTEND Student in an Organized Health Care Education/Training Program | DX: G47.33 Obstructive sleep apnea (adult) (pediatric) (principal); G47.31 Primary central sleep apnea ==

== ENCOUNTER → 2018-05-29 | Outpatient (CLI) | payer OTHER, MEDICAID | LOC: BHFA 13:15 | PROVIDERS: ATTEND Internal Medicine Cardiovascular Disease | DX: G47.30 Sleep apnea, unspecified (principal) ==